=== PATIENT | male | born 1950 | race Caucasian/White ===

== ENCOUNTER 2017-02-09 10:38 | Emergency (ER) | payer MEDICARE, BC ==
[2017-02-09 11:16] VITALS: BP 127/78
--- NOTE | 2017-02-09 12:18 | EDM.PDOC ---
ED HPI GENERAL MEDICAL PROBLEM - General Chief Complaint: General Stated Complaint: FACE BECAME NUMB ON TUESDAY AND STILL SOME WEAKNESS Time Seen by Provider: 02/09/17 11:46 Source of Information: Reports: Patient, Family, RN notes reviewed History Limitations: Reports: No limitations - History of Present Illness INITIAL COMMENTS - FREE TEXT/NARRATIVE: 66-year-old gentleman presents emergency department today with complaint of left -sided facial numbness, states his symptoms initially started on Tuesday he did have a headache at that time he describes as sharp and electric headache is now resolved he is very specific about the facial numbness is on half of his face left side above the lip and slightly below the nose does not incorporate the ear he says at certain points when he strokes his johnson it can be very painful. No rash he has never had shingles before, does not complain of any focal neural deficits Left Hip Pain Score (Numeric/FACES): 8 - Related Data Allergies Allergy/AdvReac Type Severity Reaction Status Date / Time Sulfa (Sulfonamide AdvReac Hallucinati Verified 10/25/16 07:21 Antibiotics) ons Home Meds: Home Meds Ca Carbonate/Vitamin D3/Vit K [Calcium + D Soft Chewable Tab] 1 tab PO BID 12/03 [History] Cyanocobalamin (Vitamin B-12) [B-12] 2,500 mcg PO DAILY 12/03/14 [History] Gabapentin [Neurontin] 1,200 mg PO TID 12/03/14 [History] Levothyroxine 125 mcg PO ACBRK 12/03/14 [History] Multivitamin with Minerals [Multivitamins with Minerals] 1 each PO BID 12/03/14 [History] Sertraline [Zoloft] 100 mg PO DAILY 12/03/14 [History] Vitamin B Complex [B Complex] 1 tab PO DAILY 12/03/14 [History] DULoxetine HCl [Cymbalta] 90 mg PO DAILY 02/12/16 [History] Doxepin [SINEquan] 10 mg PO BEDTIME 02/12/16 [History] Finasteride [Proscar] 5 mg PO BEDTIME 02/12/16 [History] Omeprazole [Omeprazole] 40 mg PO DAILY 02/12/16 [History] Polyethylene Glycol 3350 [Miralax] 238 gm PO DAILY PRN 02/12/16 [History] traMADol [Ultram] 50 - 100 mg PO Q6H PRN 02/12/16 [History] Cyclobenzaprine [Flexeril] 10 mg PO TID PRN 10/21/16 [History] L.acidoph,Paracasei, B.lactis [Probiotic] 1 cap PO DAILY 10/21/16 [History] traZODone 50 - 100 mg PO BEDTIME 10/21/16 [History] Past Medical History HEENT History: Reports: Impaired vision, Other (see below) Other HEENT History: wears glasses, infection in right submandibular gland Gastrointestinal History: Reports: Bowel obstruction, Cholelithiasis, Colon polyp, Gastritis, GERD Genitourinary History: Reports: Prostate disorder Musculoskeletal History: Reports: Arthritis, Back pain, chronic, Fracture, Neck pain, chronic, Other (see below) Other Musculoskeletal History: polyneuropathy Neurological History: Reports: Concussion, CVA Endocrine/Metabolic History: Reports: Hypothyroidism Hematologic History: Reports: B12 deficiency - Infectious Disease History Infectious Disease History: Reports: Chicken pox, Measles Other Infectious Disease History: MRSA 2011 - Past Surgical History Head Surgeries/Procedures: Reports: None HEENT Surgical History: Reports: Oral surgery Cardiovascular Surgical History: Reports: Other (see below) Other Cardiovascular Surgeries/Procedures: angiogram 2009 GI Surgical History: Reports: Bariatric procedure, Cholecystectomy, Colonoscopy , EGD, Hernia, abdominal, Polypectomy, Small bowel, Other (see below) Other GI Surgeries/Procedures: panniculectomy bowel resection Endocrine Surgical History: Reports: None Neurological Surgical History: Reports: Spinal fusion, Other (see below) Other Neurological Surgeries/Procedures: radiofrequency ablation neck , L4- S1 Musculoskeletal Surgical History: Reports: Carpal tunnel, Other (see below) Other Musculoskeletal Surgeries/Procedures:: rotator cuff , CTR, elbow surgery pin left big toe Dermatological Surgical History: Reports: None Social & Family History - Family History HEENT: Reports: None Cardiac: Reports: Heart failure, Hypertension Respiratory: Reports: Asthma, Other (see below) Other Respiratory Family Hisory: emphysema Oncologic: Reports: Breast, Lung, Lymphoma, Prostate, Other (see below) Other Oncologic Family History: stomach - Tobacco Use Smoking Status *Q: Current Every Day Smoker Years of Tobacco use: 50 Packs/Tins Daily: 1 Used Tobacco, but Quit: No Second Hand Smoke Exposure: Yes - Caffeine Use Caffeine Use: Reports: Coffee Other Caffeine Use: 2 pots a days - Alcohol Use Days Per Week of Alcohol Use: 0 - Recreational Drug Use Recreational Drug Use: No ED ROS GENERAL - Review of Systems Review Of Systems: See Below Constitutional: Reports: no symptoms HEENT: Reports: No symptoms Respiratory: Reports: No Symptoms Cardiovascular: Reports: No symptoms GI/Abdominal: Reports: No symptoms : Reports: no symptoms Musculoskeletal: Reports: no symptoms Neurological: Reports: Headache (Now resolve), Numbness, Tingling ED EXAM, GENERAL - Physical Exam Exam: See Below Free Text/Narrative:: Examination of the face I don't appreciate any rash very specific about the numbness tingling area is on the left side of the face top half of the lip is included bottom half is not inferior aspect of the nose up to the corner of the left eye the ear is spared and the remainder of the integument system is included consistent with a V2 dermatome Exam Limited By: No limitations General Appearance: alert, WD/WN, no apparent distress Eye Exam: bilateral eye: EOMI, normal fundi, normal inspection Nose: normal inspection, normal mucosa, no blood Throat/Mouth: Normal inspection, Normal lips, Normal teeth, Normal gums, Normal oropharynx, Normal voice, No airway compromise Head: atraumatic, normocephalic Neck: normal inspection, supple, non-tender, full range of motion Respiratory/Chest: no respiratory distress, lungs clear, normal breath sounds, no accessory muscle use Cardiovascular: regular rate, rhythm, no murmur Neurological: alert, oriented, CN II-XII intact, normal cognition, normal gait, no motor/sensory deficits Course - Vital Signs Last Recorded V/S: Last Vital Signs Temp 98.6 F 02/09/17 11:04 Pulse 55 L 02/09/17 11:04 Resp 12 02/09/17 11:04 BP 127/78 02/09/17 11:04 Pulse Ox 98 02/09/17 11:04 Departure - Departure Time of Disposition: 12:18 Disposition: Home, Self-Care 01 Condition: good Clinical Impression: Facial numbness Forms: ED Department Discharge Additional Instructions: Continue to watchful waiting, any sign of a rash develops please start the Valtrex, any vision symptoms that developed or become worse please follow up with her eye care provider, recommend recheck by your primary care provider in the next 2-3 days, call or return to the ED with worsening of symptoms - Assessment/Plan Plan: Assessment Acuity = acute Site and laterality = suspicious for early shingles given the specificity of the V2 involvement Etiology = probable varicella-zoster Manifestations = numbness, tingling, pain V2 distribution left side Location of injury = home Lab values = none Plan Prescription written for Valtrex 1 g by mouth 3 times a day x7 days and asked him to do close followup with his eye care provider if any symptoms develop, he is going to wait to start the prescription until he gets excited or rash, otherwise followup with primary care in 2-3 days for reevaluation Patient was in agreement with the plan all questions were answered, they were instructed to return to the emergency department or call for worsening symptoms. This note was dictated using the grafter voice recognition software please call with any questions.
== END 2017-02-09 12:39 | disposition home or self-care (01) ==
LOC: JP.ED 10:38
DX: R20.0 Anesthesia of skin (principal); K21.9 Gastro-esophageal reflux disease without esophagitis; E03.9 Hypothyroidism, unspecified; F17.210 Nicotine dependence, cigarettes, uncomplicated; Z90.49 Acquired absence of other specified parts of digestive tract; Z98.84 Bariatric surgery status; Z98.890 Other specified postprocedural states; Z79.899 Other long term (current) drug therapy; Z88.2 Allergy status to sulfonamides
CPT/HCPCS: 99283; 99284

== ENCOUNTER 2018-04-07 15:27 | Emergency (ER) | payer MEDICARE, BC ==
[2018-04-07 15:37] VITALS: BP 122/68
[2018-04-07] MEDS ORDERED: HYDROmorphone 1 MG/ML Syringe IM ONE (16:06)
--- NOTE | 2018-04-07 16:12 | EDM.PDOC ---
ED HPI GENERAL MEDICAL PROBLEM - General Chief Complaint: Lower Extremity Injury/Pain Stated Complaint: BOBCAT ACCIDENT Time Seen by Provider: 04/07/18 15:45 Source of Information: Reports: Patient, EMS, Family History Limitations: Reports: No Limitations - History of Present Illness INITIAL COMMENTS - FREE TEXT/NARRATIVE: Amish presents today with complaints of right knee and right ankle pain after slipping and falling off his bobcat while hauling wood today at about 1400. He reports he is not able to bear weight on his right foot. Right Knee Pain Score (Numeric/FACES): 8 - Related Data Allergies Allergy/AdvReac Type Severity Reaction Status Date / Time Sulfa (Sulfonamide AdvReac Hallucinati Verified 04/07/18 15:36 Antibiotics) ons Home Meds: Home Meds Ca Carbonate/Vitamin D3/Vit K [Calcium + D Soft Chewable Tab] 1 tab PO BID 12/03 [History] Cyanocobalamin (Vitamin B-12) [B-12] 2,500 mcg PO DAILY 12/03/14 [History] Gabapentin [Neurontin] 1,200 mg PO TID 12/03/14 [History] Levothyroxine 125 mcg PO ACBRK 12/03/14 [History] Multivitamin with Minerals [Multivitamins with Minerals] 1 each PO BID 12/03/14 [History] Sertraline [Zoloft] 100 mg PO DAILY 12/03/14 [History] Vitamin B Complex [B Complex] 1 tab PO DAILY 12/03/14 [History] DULoxetine HCl [Cymbalta] 90 mg PO DAILY 02/12/16 [History] Doxepin [SINEquan] 10 mg PO BEDTIME 02/12/16 [History] Finasteride [Proscar] 5 mg PO BEDTIME 02/12/16 [History] Omeprazole 40 mg PO DAILY 02/12/16 [History] Polyethylene Glycol 3350 [Miralax] 238 gm PO DAILY PRN 02/12/16 [History] traMADol [Ultram] 50 - 100 mg PO Q6H PRN 02/12/16 [History] Cyclobenzaprine [Flexeril] 10 mg PO TID PRN 10/21/16 [History] L.acidoph,Paracasei, B.lactis [Probiotic] 1 cap PO DAILY 10/21/16 [History] traZODone 50 - 100 mg PO BEDTIME 10/21/16 [History] Past Medical History HEENT History: Reports: Impaired Vision, Other (See Below) Other HEENT History: wears glasses, infection in right submandibular gland Cardiovascular History: Reports: None Respiratory History: Reports: Sleep Apnea Gastrointestinal History: Reports: Bowel Obstruction, Cholelithiasis, Colon Polyp, Gastritis, GERD Genitourinary History: Reports: Prostate Disorder Musculoskeletal History: Reports: Arthritis, Back Pain, Chronic, Fracture, Neck Pain, Chronic Other Musculoskeletal History: polyneuropathy Neurological History: Reports: CVA Endocrine/Metabolic History: Reports: Hypothyroidism Hematologic History: Reports: B12 Deficiency - Infectious Disease History Infectious Disease History: Reports: Chicken Pox, Measles Other Infectious Disease History: MRSA 2011 - Past Surgical History HEENT Surgical History: Reports: Oral Surgery GI Surgical History: Reports: Bariatric Procedure, Cholecystectomy, Colon, Colonoscopy, EGD, Hernia, Abdominal, Polypectomy, Small Bowel, Other (See Below) Other GI Surgeries/Procedures: colon resection Male Surgical History: Reports: TURP-Transurethral Resection of Prostate Neurological Surgical History: Reports: Spinal Fusion Musculoskeletal Surgical History: Reports: Carpal Tunnel Social & Family History - Family History HEENT: Reports: None Cardiac: Reports: Heart Failure, Hypertension Respiratory: Reports: Asthma, Other (See Below) Other Respiratory Family Hisory: emphysema Oncologic: Reports: Breast, Lung, Lymphoma, Prostate, Other (See Below) Other Oncologic Family History: stomach - Tobacco Use Smoking Status *Q: Heavy Tobacco Smoker Years of Tobacco use: 50 Packs/Tins Daily: 1 - Caffeine Use Caffeine Use: Reports: Coffee Other Caffeine Use: 2 pots a days - Recreational Drug Use Recreational Drug Use: No Review of Systems - Review of Systems Review Of Systems: See Below Constitutional: Reports: No Symptoms Eyes: Reports: No Symptoms Ears: Reports: No Symptoms Nose: Reports: No Symptoms Mouth/Throat: Reports: No Symptoms Respiratory: Reports: No Symptoms Cardiovascular: Reports: No Symptoms GI/Abdominal: Reports: No Symptoms Genitourinary: Reports: No Symptoms Musculoskeletal: Reports: Foot Pain, Joint Pain, Other (Right knee and ankle pain) Skin: Reports: No Symptoms Neurological: Reports: Other (He suffers from chronic polyneuropathy, numbness to feet. ) Psychiatric: Reports: No Symptoms ED EXAM, GENERAL - Physical Exam Exam: See Below Free Text/Narrative:: Mr. Garvey presents today with complaints of pain to right knee and ankle after twisting injury when he slipped and fell on his bobcat at 1400 today. He denies LOC, head injury or other concerns. He reports use of oxycontin works good for his pain. General Appearance: Alert, WD/WN, Moderate Distress Eye Exam: Bilateral Eye: EOMI, Normal Inspection, PERRL Ears: Normal External Exam, Normal Canal, Hearing Grossly Normal, Normal TMs Ear Exam: Bilateral Ear: TM normal Nose: Normal Inspection, Normal Mucosa, No Blood Throat/Mouth: Normal Inspection, Normal Lips, Normal Gums, Normal Oropharynx, Normal Voice, No Airway Compromise Head: Atraumatic, Normocephalic Neck: Normal Inspection, Supple, Non-Tender, Full Range of Motion. No: Lymphadenopathy (R), Lymphadenopathy (L) Respiratory/Chest: No Respiratory Distress, Lungs Clear, Normal Breath Sounds, No Accessory Muscle Use, Chest Non-Tender Cardiovascular: Normal Peripheral Pulses, Regular Rate, Rhythm, No Edema, No Gallop, No Murmur, No Rub Peripheral Pulses: 2+: Radial (L), Radial (R), Dorsalis Pedis (L), Dorsalis Pedis (R) GI/Abdominal: Normal Bowel Sounds, Soft, Non-Tender, No Organomegaly, No Distention, No Mass, Pelvis Stable Back Exam: Normal Inspection, Full Range of Motion. No: CVA Tenderness (R), CVA Tenderness (L) Extremities: No Pedal Edema, Normal Capillary Refill, Leg Pain, Limited Range of Motion, Other (Pain to medial right knee and medial right ankle. Increase in pain with movement, flexion and extension. ). No: Increased Warmth, Mottled , Redness Neurological: Alert, Oriented, CN II-XII Intact, Normal Cognition, Normal Reflexes, No Motor/Sensory Deficits Psychiatric: Normal Affect, Normal Mood Skin Exam: Warm, Dry, Intact, Normal Color, No Rash. No: Ecchymosis, Erythema, Increased Warmth Lymphatic: No Adenopathy Course - Vital Signs Last Recorded V/S: Last Vital Signs Temp 36.7 C 04/07/18 15:33 Pulse 58 L 04/07/18 15:33 Resp 18 04/07/18 15:33 BP 122/68 04/07/18 15:33 Pulse Ox 96 04/07/18 15:33 - Orders/Labs/Meds Orders: Active Orders 24 hr Category Date Time Status Ankle Min 3V Rt [CR] Stat Exams 04/07/18 16:06 Taken Knee 3V Rt [CR] Stat Exams 04/07/18 16:06 Taken Meds: Medications Discontinued Medications Generic Name Dose Route Start Last Admin Trade Name Lali PRN Reason Stop Dose Admin Hydrocodone Bitart/Acetaminophen 1 tab 04/07/18 17:19 [place] 325-5 Mg PO 04/07/18 17:20 ONETIME ONE Hydromorphone HCl 1 mg 04/07/18 16:06 04/07/18 16:22 Dilaudid IM 04/07/18 16:07 1 mg ONETIME ONE Administration - Radiology Interpretation Free Text/Narrative:: X-rays of right knee and right ankle reviewed. No acute findings noted. X-rays reviewed with Dr. Al, she is in agreement. Radiologist read pending. Departure - Departure Time of Disposition: 17:29 Disposition: Home, Self-Care 01 Condition: Good Clinical Impression: Right ankle sprain, Right knee pain - Discharge Information Instructions: Ankle Sprain, [id number], Knee Sprain, Adult, [id number] Referrals: Iggy Chicas INTERNATIONAL LOGISTICS COORDINATOR [Primary Care Provider] - Forms: ED Department Discharge Additional Instructions: You have been evaluated and treated for right knee sprain and right ankle sprain in the emergency room Secondary to fall from Bobcat. Rest, ice, elevation and compression will help the best. Keep the right leg elevated to minimize swelling and pain. Use michelle wraps for compression to help with swelling and pain. Take ibuprofen 600mg to 800mg by mouth three times a day as needed for pain. You can also take acetaminophen 1000mg by mouth three times a day for pain. Wear Cam-walker boot for ankle sprain. Hard copy script provided for short right knee stabilizer - neoprene. Fill this at nearest pharmacy for support. Use a walker to assist with ambulation until pain decreases. Follow up with Dr. Carla Young ORTHO next week for further management. Return for worsening, issues or concerns. - My Orders Last 24 Hours: My Active Orders 04/07/18 16:06 Ankle Min 3V Rt [CR] Stat Knee 3V Rt [CR] Stat - Assessment/Plan Last 24 Hours: My Active Orders 05/25/18 16:06 Ankle Min 3V Rt [CR] Stat Knee 3V Rt [CR] Stat Assessment:: Right knee sprain Right ankle sprain Plan: Patient evaluated and treated for right knee sprain and right ankle sprain in the emergency room Secondary to fall from Bobcat. Rest, ice, elevation and compression will help the best. Keep the right leg elevated to minimize swelling and pain. Use michelle wraps for compression to help with swelling and pain. Take ibuprofen 600mg to 800mg by mouth three times a day as needed for pain. He can also take acetaminophen 1000mg by mouth three times a day for pain. Wear Cam-walker boot for ankle sprain. Hard copy script provided for short right knee stabilizer - neoprene. Fill this at nearest pharmacy for support. Use a walker to assist with ambulation until pain decreases. Follow up with Dr. Carla Young ORTHO next week for further management. Return for worsening, issues or concerns.
[2018-04-07] MEDS ORDERED: Acetaminophen/HYDROcodone 325-5 MG Tab PO ONE (17:19)
--- NOTE | 2018-04-11 08:53 | CR ---
Findings: Degenerative changes at the ankle. Osteophyte or loose body at the talar neck dorsal aspect . Calcification of the plantar fascia and Achilles tendon. No fracture.
--- NOTE | 2018-04-11 08:53 | CR ---
Large effusion or synovitis. Chondrocalcinosis. Arthritic change greatest at the patellofemoral sonam rtment. No fracture.
== END 2018-04-07 18:22 | disposition home or self-care (01) ==
LOC: JP.ED 15:27
DX: S93.401A Sprain of unspecified ligament of right ankle, initial encounter (principal); S83.91XA Sprain of unspecified site of right knee, initial encounter; E03.9 Hypothyroidism, unspecified; F17.210 Nicotine dependence, cigarettes, uncomplicated; Z88.2 Allergy status to sulfonamides; Z79.899 Other long term (current) drug therapy; W01.0XXA Fall on same level from slipping, tripping and stumbling without subsequent striking against object, initial encounter
CPT/HCPCS: 73562; 73610; 96372; 99284; A9270; J1170

== ENCOUNTER 2018-05-08 08:01 | Day surgery (SDC) | payer BC, MEDICARE ==
[2018-05-08] MEDS ORDERED: LACTATED RINGERS IV SCH ×3 (08:30)
[2018-05-08] MEDS ORDERED: VITAMIN K IV SCH ×3 (08:30)
[2018-05-08] MEDS ORDERED: THIAMINE IV SCH ×3 (08:30)
[2018-05-08] MEDS ORDERED: MVI IV SCH ×3 (08:30)
[2018-05-08] MEDS ORDERED: fentaNYL 100 MCG/2 ML SDV ONE (08:45)
[2018-05-08] MEDS ORDERED: Propofol 200 MG/20 ML SDV ONE (08:45)
[2018-05-08] MEDS ORDERED: Midazolam 1 MG/ML 2 ML SDV ONE (08:45)
[2018-05-08] MEDS ORDERED: Glycopyrrolate 0.2 MG/ML 2 ML SDV IVPUSH ONE (09:00)
[2018-05-08] MEDS ORDERED: Cyanocobalamin (Vitamin B12) 1,000 MCG/ML SDV IM ONE (09:30)
[2018-05-08] MEDS ORDERED: MVI, Adult with Vitamin K 10 ML, Thiamine 200 MG, Chromium/Copper/Mang/Selen/Zn 1 ML in... IV ONE ×4 (10:30)
[2018-05-08 11:56] VITALS: BP 135/76
--- NOTE | 2018-05-09 09:26 | OR ---
DATE OF PROCEDURE: 05/08/2018 PREOPERATIVE DIAGNOSES: Epigastric pain and heartburn. POSTOPERATIVE DIAGNOSES: Epigastric pain and heartburn, status post Brittani-en-Y gastric bypass with; 1. Possible thrush over tongue. 2. Otherwise normal examination. OPERATIVE PROCEDURE: Upper GI endoscopy. ANESTHESIA: IV sedation. INDICATION FOR PROCEDURE: The patient presents with some complaints of epigastric discomfort and heartburn, along with a dry and somewhat thickened feeling over this tongue. The patient has been on omeprazole 40 mg daily. He had been on Carafate, but found that not tolerable. The plan is to proceed with upper GI endoscopy with biopsies as indicated. Potential risks including bleeding and perforation were discussed, and the patient wishes to proceed. DETAILS OF PROCEDURE: The patient was taken to the operating room and placed in a left lateral decubitus position. IV sedation was administered, after which the upper GI endoscope was passed orally through the length of the esophagus and into the gastric pouch and from there through the gastrojejunostomy roughly 30 cm further into the Brittani limb. The patient was noted to have a thickened and somewhat widened area over the surface of the tongue, otherwise, subsequent examination below that was entirely normal. There were no abnormalities of the hypopharynx, larynx, or upper esophageal sphincter. The esophageal body and EG junction were entirely free of any gross inflammation. The gastric pouch likewise was not inflamed, and there was no stricturing or problems noted at the gastrojejunostomy. The mucosa throughout this entire exam was entirely normal below the tongue. Passing the scope quite a bit into the Brittani limb, there was no bile or other signs of partial small bowel obstruction distally. The scope was then withdrawn, and the procedure then concluded. The patient was taken to the recovery room in a satisfactory condition. The patient will be given a course of Mycostatin swish and swallow 5 mL q.i.d. for 5 days for possible thrush. Otherwise, continue the present medications. He will be following up with Olga Brown in one week. If he continues to have symptoms of heartburn or dysphasia, a course of Levsin may be warranted at that point. The patient was also complaining of some nebulous symptoms suggestive of TIAs. This apparently has received some workup in the recent past, and Olga Brown will be looking into that in terms of what needs to be done in terms of further evaluation, workup and referrals. Artur Young MD Job #: [id number]
== END 2018-05-08 12:26 | disposition home or self-care (01) ==
LOC: JP.SDS 08:01
PROVIDERS: ATTEND Surgery
PROC: 0DJ08ZZ Inspection of Upper Intestinal Tract, Via Natural or Artificial Opening Endoscopic (ICD-10-PCS; principal; 2018-05-08)
DX: R10.13 Epigastric pain (principal); R12 Heartburn
CPT/HCPCS: 43235; J2250; J2704; J3010; J3411; J3420; J7120; J3490

== ENCOUNTER 2019-01-19 07:44 | Day surgery (SDC) | payer MEDICARE ==
[2019-01-19] MEDS ORDERED: Dextrose 5%-Lactated Ringers 1,000 ML IV SCH (08:45)
[2019-01-19] MEDS ORDERED: Propofol 200 MG/20 ML SDV ONE (09:33)
[2019-01-19] MEDS ORDERED: Midazolam 1 MG/ML 2 ML SDV ONE (09:33)
[2019-01-19] MEDS ORDERED: fentaNYL 100 MCG/2 ML SDV ONE (09:33)
[2019-01-19] MEDS ORDERED: MVI, Adult with Vitamin K 10 ML, Chromium/Copper/Mang/Selen/Zn 1 ML in Lactated Ringers... IV ONE ×3 (10:00)
[2019-01-19 11:47] VITALS: BP 161/72
--- NOTE | 2019-01-26 09:03 | OR ---
DATE OF PROCEDURE: 01/19/2019 SURGEON: Artur Young MD PREOPERATIVE DIAGNOSIS: History of pancreatic carcinoma with ongoing nausea and weight loss. POSTOPERATIVE DIAGNOSIS: Normal endoscopic examination, status post Brittani-en-Y gastric bypass. OPERATIVE PROCEDURE: Upper GI endoscopy with biopsy of gastric pouch for CLOtest. ANESTHESIA: IV sedation. 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 He is beginning neoadjuvant treatment next week. He has had problems with nausea and weight loss, and he is undergoing upper GI endoscopy for evaluation of his upper GI status. He is status post previous Brittani-en-Y gastric bypass. Potential risks including bleeding and perforation were discussed, and the patient wishes to proceed. DETAILS OF PROCEDURE: The patient was taken to the operating room and placed in a left lateral decubitus position. IV sedation was administered, after which the upper GI endoscope was passed orally through the length of the esophagus, through the esophagogastric junction into the gastric pouch, and from there through the gastrojejunostomy roughly 20 cm into the Brittani limb. Overall, there were no abnormalities at all during the examination. There were no areas of mucosal inflammation, no stricturing, and no reflux of bile or signs of more distal bowel obstruction. Biopsies were then obtained from the gastric pouch and sent for CLOtest for H. pylori. Minimal bleeding from the biopsy sites was seen, and the procedure was then concluded. At this point, the patient's nausea and anorexia are likely tumor related factors, as well as his jaundiced state. The plan will be to give the patient Zofran 4 mg ODT t.i.d. to be taken around 30 minutes before meals. We will also give an additional liter of lactate Ringer's with MVI trace elements prior to discharge today. He will be following with Medical-Oncology next week. The patient is quite jaundiced at this point, and the hope is that the neoadjuvant treatment will treat the tumor enough that he opens up his common bile duct to some extent. If this fails to occur over the next relatively short period, one might consider placing an endoscopic stent across the common bile duct to alleviate the jaundice. Artur Young MD /[id number]
== END 2019-01-19 12:27 | disposition home or self-care (01) ==
LOC: JP.SDS 07:44
PROVIDERS: ATTEND Surgery
DX: R11.0 Nausea (principal); R63.4 Abnormal weight loss; R63.0 Anorexia; C25.0 Malignant neoplasm of head of pancreas; E03.9 Hypothyroidism, unspecified; K21.9 Gastro-esophageal reflux disease without esophagitis; F17.200 Nicotine dependence, unspecified, uncomplicated; F32.9 Major depressive disorder, single episode, unspecified; Z98.84 Bariatric surgery status; Z68.29 Body mass index [BMI] 29.0-29.9, adult; Z86.73 Personal history of transient ischemic attack (TIA), and cerebral infarction without residual deficits
CPT/HCPCS: 43239; 87081; C1751; J1642; J2250; J2704; J3010; J7042; J7120

== ENCOUNTER 2019-02-14 22:22 | Inpatient (IN) | payer MEDICARE ==
[2019-02-14] MEDS ORDERED: Ondansetron 4 MG Tab.DIS PO ONE (22:27)
[2019-02-14] MEDS ORDERED: Lactated Ringers 1,000 ML IV ONE (22:49)
[2019-02-14] MEDS ORDERED: Acetaminophen 500 MG Tab PO ONE (22:57)
[2019-02-14] MEDS ORDERED: oxyCODONE 5 MG Tab PO ONE (22:57)
--- NOTE | 2019-02-14 23:04 | EDM.PDOC ---
ED HPI GENERAL MEDICAL PROBLEM - General Chief Complaint: Fever Stated Complaint: FEVER, NAUSEA Time Seen by Provider: 02/14/19 22:50 Source of Information: Reports: Patient, Old Records History Limitations: Reports: Other (incomplete records) - History of Present Illness INITIAL COMMENTS - FREE TEXT/NARRATIVE: 68 yo male with pancreatic CA presents with a fever since midday yesterday. Was in to the clinic yesterday morning for a different issue and has not reported his current illness to his primary. Called the provider group who tx's his CA and was told to come right in to the ER and to not take any of his oral meds before arrival, he did not ask why he shouldn't take these meds. He denies any other sx's other than a mild sore throat currently. Did have some mild nausea earlier. Has a Powerport since 01/11/19 placed at [place]. Is followed for his CA by [facility]. Onset: Gradual Onset Date: 02/13/19 Duration: Day(s): (1.5), Constant Location: Reports: Generalized Quality: Reports: Other (no pain) Severity: Mild Improves with: Reports: None Worsens with: Reports: Other (? time) Context: Reports: Other (see HPI) Associated Symptoms: Reports: Fever/Chills, Nausea/Vomiting (no vomiting). 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) (none) - Related Data Allergies Allergy/AdvReac Type Severity Reaction Status Date / Time Sulfa (Sulfonamide AdvReac Hallucinati Verified 02/14/19 23:00 Antibiotics) ons environmental Allergy Hives Uncoded 02/14/19 23:00 Home Meds: Home Meds Ca Carbonate/Vitamin D3/Vit K [Calcium + D Soft Chewable Tab] 1 tab PO BID 12/03 [History] Cyanocobalamin (Vitamin B-12) [B-12] 2,500 mcg PO DAILY 12/03/14 [History] Gabapentin [Neurontin] 600 mg PO BID 12/03/14 [History] Levothyroxine 125 mcg PO ACBRK 12/03/14 [History] Multivitamin with Minerals [Multivitamins with Minerals] 1 each PO BID 12/03/14 [History] Sertraline [Zoloft] 100 mg PO DAILY 12/03/14 [History] Vitamin B Complex [B Complex] 1 tab PO DAILY 12/03/14 [History] DULoxetine HCl [Cymbalta] 60 mg PO BID 02/12/16 [History] Omeprazole 40 mg PO BID 02/12/16 [History] Cyclobenzaprine [Flexeril] 10 mg PO TID PRN 10/21/16 [History] Acetaminophen 650 mg PO Q4H PRN 05/04/18 [History] Calcium Carbonate [Calcium] 500 mg PO DAILY PRN 05/04/18 [History] EPINEPHrine [Epipen 2-Viral] 0.3 ml IM ASDIRECTED 05/04/18 [History] rOPINIRole [Requip] 1 mg PO BEDTIME 05/04/18 [History] Polyethylene Glycol 3350 17 g PO QPM 01/17/19 [History] Prochlorperazine Maleate [Compazine] 10 mg PO Q6HR PRN 01/17/19 [History] Venlafaxine [Effexor] 75 mg PO DAILY 01/17/19 [History] oxyCODONE 10 mg PO Q4HR PRN 01/17/19 [History] Past Medical History HEENT History: Reports: Impaired Vision, Other (See Below) Other HEENT History: wears glasses, infection in right submandibular gland Cardiovascular History: Reports: High Cholesterol Respiratory History: Reports: Sleep Apnea Gastrointestinal History: Reports: Bowel Obstruction, Cholelithiasis, Colon Polyp, Gastritis, GERD, Jaundice Genitourinary History: Reports: Prostate Disorder Musculoskeletal History: Reports: Arthritis, Back Pain, Chronic, Fracture, Neck Pain, Chronic, Other (See Below) Other Musculoskeletal History: polyneuropathy. R knee/ankle sprain Neurological History: Reports: CVA Psychiatric History: Reports: Anxiety Endocrine/Metabolic History: Reports: Hypothyroidism, Obesity/BMI 30+ Hematologic History: Reports: B12 Deficiency Oncologic (Cancer) History: Reports: Pancreatic - Infectious Disease History Infectious Disease History: Reports: Chicken Pox, MRSA Other Infectious Disease History: MRSA 2011 - Past Surgical History HEENT Surgical History: Reports: Oral Surgery Respiratory Surgical History: Reports: None GI Surgical History: Reports: Bariatric Procedure, Colonoscopy, EGD, Hernia Repair/Other Other GI Surgeries/Procedures: colon resection; Panniculectomy Male Surgical History: Reports: TURP-Transurethral Resection of Prostate Endocrine Surgical History: Reports: Other (See Below) Other Endocrine Surgeries/Procedures: Salvitory gland Neurological Surgical History: Reports: Spinal Fusion Musculoskeletal Surgical History: Reports: Carpal Tunnel, Shoulder Surgery, Other (See Below) Other Musculoskeletal Surgeries/Procedures:: left rotator cuff repair Social & Family History - Family History Family Medical History: Noncontributory HEENT: Reports: None Cardiac: Reports: Heart Failure, Hypertension Respiratory: Reports: Asthma, Other (See Below) Other Respiratory Family Hisory: emphysema Oncologic: Reports: Breast, Lung, Lymphoma, Prostate, Other (See Below) Other Oncologic Family History: stomach - Caffeine Use Caffeine Use: Reports: Coffee Other Caffeine Use: 2 pots a days ED ROS GENERAL - Review of Systems Review Of Systems: See Below Constitutional: Reports: Fever, Chills, Malaise HEENT: Reports: Throat Pain (minimal). Denies: Ear Pain, Eye Discharge, Rhinitis, Throat Swelling Respiratory: Reports: No Symptoms Cardiovascular: Reports: No Symptoms GI/Abdominal: Reports: Abdominal Pain (chronic, not worse), Nausea (better now) . Denies: Black Stool, Bloody Stool, Diarrhea, Vomiting : Reports: No Symptoms Musculoskeletal: Reports: No Symptoms Skin: Reports: No Symptoms Neurological: Reports: No Symptoms ED EXAM, SEPSIS - Physical Exam Exam: See Below Exam Limited By: No Limitations General Appearance: Alert, WD/WN, No Apparent Distress Eye Exam: Bilateral Eye: Normal Inspection Ears: Normal External Exam, Normal Canal, Hearing Grossly Normal, Normal TMs Nose: Normal Inspection, No Blood Throat/Mouth: Normal Inspection, Normal Lips, Normal Oropharynx, Normal Voice, No Airway Compromise Head: Atraumatic, Normocephalic Neck: Normal Inspection, Non-Tender Respiratory/Chest: No Respiratory Distress, Lungs Clear, Normal Breath Sounds, No Accessory Muscle Use Cardiovascular: Regular Rate, Rhythm, No Edema GI/Abdominal Exam: Normal Bowel Sounds, Soft, Non-Tender, No Distention. No: Distended, Guarding, Rigid, Rebound, Tender Back: Normal Inspection. No: CVA Tenderness (R), CVA Tenderness (L) Extremities: Normal Inspection, Normal Range of Motion, Non-Tender, No Pedal Edema Neurological: Alert, Oriented, CN II-XII Intact, Normal Cognition, No Motor/ Sensory Deficits Psychiatric: Normal Affect, Normal Mood Skin: Warm, Dry, Intact, Normal Color, No Rash Lymphatic: Bilateral: No Adenopathy Course - Vital Signs Text/Narrative:: Spoke with [facility] oncology @ 1244h, Dr. Alvaro Grace aware @ 12:55 am Last Recorded V/S: Last Vital Signs Temp 37.4 C 02/15/19 00:37 Pulse 95 02/15/19 00:37 Resp 14 02/15/19 00:37 BP 100/52 L 02/15/19 00:37 Pulse Ox 95 02/15/19 00:37 - Orders/Labs/Meds Orders: Active Orders 24 hr Category Date Time Status CULTURE BLOOD [BC] Stat Lab 02/14/19 23:55 Received CULTURE BLOOD [BC] Stat Lab 02/15/19 00:44 Ordered Vancomycin 1.75 gm Med 02/15/19 01:02 Ordered Sodium Chloride 0.9% [Normal Saline] 250 ml IV NOW Labs: Laboratory Tests 02/14/19 02/14/19 02/15/19 Range/Units 23:10 23:10 00:08 WBC 19.5 H (4.5-11.0) K/uL RBC 3.24 L (4.30-5.90) M/uL Hgb 10.0 L D (12.0-15.0) g/dL Hct 30.9 L (40.0-54.0) % MCV 95 (80-98) fL MCH 31 (27-31) pg MCHC 32 (32-36) % Plt Count 152 (150-400) K/uL C-Reactive Protein 6.59 H (0.0-0.3) mg/dL Urine Color Yellow Urine Appearance Clear Urine pH 8.0 (4.5-8.0) Ur Specific [place] 1.010 (1.008-1.030) Urine Protein Negative (NEGATIVE) mg/dL Urine Glucose (UA) Normal (NEGATIVE) mg/dL Urine Ketones Negative (NEGATIVE) mg/dL Urine Occult Blood Negative (NEGATIVE) Urine Nitrite Negative (NEGAITVE) Urine Bilirubin Negative (NEGATIVE) Urine Urobilinogen Normal (NORMAL) mg/dL Ur Leukocyte Esterase Negative (NEGATIVE) Urine RBC 0-5 (0-5) Urine WBC 0-5 (0-5) Ur Epithelial Cells Rare Amorphous Sediment Not seen Urine Bacteria Few Urine Mucus Not seen Meds: Medications Discontinued Medications Generic Name Dose Route Start Last Admin Trade Name Freq PRN Reason Stop Dose Admin Acetaminophen 1,000 mg 02/14/19 22:57 02/14/19 23:20 Tylenol Extra Strength PO 02/14/19 22:58 1,000 mg ONETIME ONE Administration Lactated Ringer's 1,000 mls @ 1,000 mls/hr 02/14/19 22:49 Ringers, Lactated IV 02/14/19 23:48 BOLUS ONE Ondansetron HCl 4 mg 02/14/19 22:27 Zofran Odt PO 02/14/19 22:28 ONETIME ONE Oxycodone HCl 10 mg 02/14/19 22:57 02/14/19 23:21 Oxycodone PO 02/14/19 22:58 10 mg ONETIME ONE Administration - Radiology Interpretation Free Text/Narrative:: CXR-negative Departure - Departure Time of Disposition: 01:10 Disposition: Admitted As Inpatient 67 Condition: Fair Clinical Impression: Bacteremia Central line-associated bloodstream infection Qualifiers: Encounter type: initial encounter Qualified Code(s): T80.211A - Bloodstream infection due to central venous catheter, initial encounter - Discharge Information *PRESCRIPTION DRUG MONITORING PROGRAM REVIEWED*: No *COPY OF PRESCRIPTION DRUG MONITORING REPORT IN PATIENT PRAVEEN: No Referrals: Iggy Chicas NP [Primary Care Provider] - Forms: ED Department Discharge - My Orders Last 24 Hours: My Active Orders 02/14/19 23:55 CULTURE BLOOD [BC] Stat 02/15/19 00:44 CULTURE BLOOD [BC] Stat 02/15/19 01:02 Vancomycin 1.75 gm Sodium Chloride 0.9% [Normal Saline] 250 ml IV NOW - Assessment/Plan Last 24 Hours: My Active Orders 02/14/19 23:55 CULTURE BLOOD [BC] Stat 02/15/19 00:44 CULTURE BLOOD [BC] Stat 02/15/19 01:02 Vancomycin 1.75 gm Sodium Chloride 0.9% [Normal Saline] 250 ml IV NOW
--- NOTE | 2019-02-15 00:47 | CRLCR ---
INDICATION: Fever TECHNIQUE: Chest 2 views. COMPARISON: 04/14/2018 FINDINGS: Cardiovascular and mediastinum: Heart size and vasculature are normal in caliber and appearance. Mediastinum is within normal limits. Lungs and pleural spaces: Right-sided [id number] tip terminates in the proximal SVC. Lungs are clear. No sign of infiltrate. Stable 10 millimeter nodule left lower lobe. No sign of pleural effusion. No pneumothorax. Bones and soft tissues: No significant findings. IMPRESSION: No evidence for pneumonia. 10 millimeter nodule left lower lobe. Dictated by Tyrel Patel MD @ 02/15/2019 12:45:23 AM Dictated by: Tyrel Patel MD @ 02/15/2019 00:45:33 (Electronically Signed)
[2019-02-15] MEDS ORDERED: Sodium Chloride 0.9% 1,000 ML IV ONE (03:11)
--- NOTE | 2019-02-15 03:30 | PCM.HP ---
H&P History of Present Illness - General Date of Service: 02/14/19 Admit Problem/Dx: Admission Diagnosis/Problem Admission Diagnosis/Problem Sepsis Source of Information: Patient History Limitations: Reports: No Limitations - History of Present Illness Initial Comments - Free Text/Narative: - History of Present Illness INITIAL COMMENTS - FREE TEXT/NARRATIVE: 68 yo male with pancreatic CA presents with a fever since midday yesterday. Was in to the clinic yesterday morning for a different issue and has not reported his current illness to his primary. Called the provider group who tx's his CA and was told to come right in to the ER and to not take any of his oral meds before arrival, he did not ask why he shouldn't take these meds. He denies any other sx's other than a mild sore throat currently. Did have some mild nausea earlier. Has a Powerport since 01/11/19 placed at [place]. Is followed for his CA by [facility]. Onset of Symptoms: Reports: Today Duration of Symptoms: Reports: Hour(s): Location: Reports: Generalized (fever, not feeling well) Severity: Moderate Improves with: Reports: None Worsens with: Reports: None Context: Reports: Other (pancreatic cancer, chemo therapy this week. ) Associated Symptoms: Reports: Fever/Chills, Nausea/Vomiting - Related Data Allergies/Adverse Reactions: Allergies Allergy/AdvReac Type Severity Reaction Status Date / Time Sulfa (Sulfonamide AdvReac Hallucinati Verified 02/14/19 23:00 Antibiotics) ons environmental Allergy Hives Uncoded 02/14/19 23:00 Home Medications: Home Meds Ca Carbonate/Vitamin D3/Vit K [Calcium + D Soft Chewable Tab] 1 tab PO BID 12/03 [History] Cyanocobalamin (Vitamin B-12) [B-12] 2,500 mcg PO DAILY 12/03/14 [History] Gabapentin [Neurontin] 600 mg PO TID 12/03/14 [History] Levothyroxine 125 mcg PO ACBRK 12/03/14 [History] Multivitamin with Minerals [Multivitamins with Minerals] 1 each PO BID 12/03/14 [History] Sertraline [Zoloft] 100 mg PO DAILY 12/03/14 [History] Vitamin B Complex [B Complex] 1 tab PO DAILY 12/03/14 [History] DULoxetine HCl [Cymbalta] 60 mg PO BID 02/12/16 [History] Omeprazole 40 mg PO BID 02/12/16 [History] Cyclobenzaprine [Flexeril] 10 mg PO TID PRN 10/21/16 [History] Acetaminophen 650 mg PO Q4H PRN 05/04/18 [History] Calcium Carbonate [Calcium] 500 mg PO DAILY PRN 05/04/18 [History] EPINEPHrine [Epipen 2-Viral] 0.3 ml IM ASDIRECTED 05/04/18 [History] rOPINIRole [Requip] 1 mg PO BEDTIME 05/04/18 [History] Polyethylene Glycol 3350 17 g PO QPM 01/17/19 [History] Prochlorperazine Maleate [Compazine] 10 mg PO Q6HR PRN 01/17/19 [History] Venlafaxine [Effexor] 75 mg PO DAILY 01/17/19 [History] oxyCODONE 10 mg PO Q4HR PRN 01/17/19 [History] 0.9 % Sodium Chloride [Sodium Chloride] 10 ml GTUBE DAILY 02/15/19 [History] Amylase/Lipase/Protease [Creon DR 6,000 Unit] 6,000 unit PO TID 02/15/19 [ History] Aspirin [Aspirin EC] 325 mg PO DAILY 02/15/19 [History] Diphenhyd/Lidocaine/Nystatin [First-Bxn Mouthwash] 5 ml SSPIT QID 02/15/19 [ History] Gemcitabine HCl 800 mg IV ASDIRECTED 02/15/19 [History] Morphine [MS Contin] 15 mg PO Q12HR 02/15/19 [History] PACLitaxel Protein-Bound [Abraxane] 298 mg IV ASDIRECTED 02/15/19 [History] atorvaSTATin [Lipitor] 10 mg PO BEDTIME 02/15/19 [History] Past Medical History HEENT History: Reports: Impaired Vision, Other (See Below) Other HEENT History: wears glasses, infection in right submandibular gland Cardiovascular History: Reports: High Cholesterol Respiratory History: Reports: Sleep Apnea Gastrointestinal History: Reports: Bowel Obstruction, Cholelithiasis, Colon Polyp, Gastritis, GERD, Jaundice Genitourinary History: Reports: Prostate Disorder Musculoskeletal History: Reports: Arthritis, Back Pain, Chronic, Fracture, Neck Pain, Chronic, Other (See Below) Other Musculoskeletal History: polyneuropathy. R knee/ankle sprain Neurological History: Reports: CVA Psychiatric History: Reports: Anxiety Endocrine/Metabolic History: Reports: Hypothyroidism, Obesity/BMI 30+ Hematologic History: Reports: B12 Deficiency Oncologic (Cancer) History: Reports: Pancreatic - Infectious Disease History Infectious Disease History: Reports: Chicken Pox, MRSA Other Infectious Disease History: MRSA 2011 - Past Surgical History HEENT Surgical History: Reports: Oral Surgery Respiratory Surgical History: Reports: None GI Surgical History: Reports: Bariatric Procedure, Colonoscopy, EGD, Hernia Repair/Other Other GI Surgeries/Procedures: colon resection; Panniculectomy Male Surgical History: Reports: TURP-Transurethral Resection of Prostate Endocrine Surgical History: Reports: Other (See Below) Other Endocrine Surgeries/Procedures: Salvitory gland Neurological Surgical History: Reports: Spinal Fusion Musculoskeletal Surgical History: Reports: Carpal Tunnel, Shoulder Surgery, Other (See Below) Other Musculoskeletal Surgeries/Procedures:: left rotator cuff repair Social & Family History - Family History Family Medical History: Noncontributory HEENT: Reports: None Cardiac: Reports: Heart Failure, Hypertension Respiratory: Reports: Asthma, Other (See Below) Other Respiratory Family Hisory: emphysema Oncologic: Reports: Breast, Lung, Lymphoma, Prostate, Other (See Below) Other Oncologic Family History: stomach - Tobacco Use Smoking Status *Q: Current Every Day Smoker Years of Tobacco use: 50 Packs/Tins Daily: 3 Used Tobacco, but Quit: Yes Month/Year Tobacco Last Used: 2010 Second Hand Smoke Exposure: No - Caffeine Use Caffeine Use: Reports: Coffee Other Caffeine Use: 2 pots a days - Recreational Drug Use Recreational Drug Use: No - Living Situation & Occupation Living situation: Reports: Occupation: Retired (lives with his of 33 years Ce [place], [place]. has 3 children and 1 step-child all adults) H&P Review of Systems - Review of Systems: Review Of Systems: See Below General: Reports: Fever, Chills, Malaise, Fatigue, Decreased Appetite, Weight Loss HEENT: Reports: Glasses, Other (dentures) Pulmonary: Reports: No Symptoms Gastrointestinal: Reports: Abdominal Pain (chronic, pancreatic cancer with Port- a-cath in right upper chest shunt right upper quadrant.), Decreased Appetite, Nausea, Other (heartburn ) Genitourinary: Reports: No Symptoms Musculoskeletal: Reports: Back Pain, Muscle Pain Skin: Reports: Pallor Psychiatric: Reports: No Symptoms Neurological: Reports: No Symptoms Hematologic/Lymphatic: Reports: Anemia Immunologic: Reports: No Symptoms Exam - Exam Exam: See Below - Vital Signs Vital Signs: Last Vital Signs Temp 37.3 C 02/15/19 01:26 Pulse 106 H 02/15/19 01:26 Resp 14 02/15/19 01:26 BP 105/60 02/15/19 01:26 Pulse Ox 95 02/15/19 01:26 Weight: 100.698 kg - Exam Quality Assessment: Central Line/PICC, DVT Prophylaxis General: Alert, Oriented, Cooperative, Mild Distress HEENT: PERRLA, Conjunctiva Clear, Hearing Intact, Mucosa Moist & Jovista, Nares Patent, Glasses, Other (dentures) Neck: Supple, Trachea Midline, Full Range of Motion Lungs: Clear to Auscultation, Normal Respiratory Effort Cardiovascular: Regular Rate, Regular Rhythm, Normal S1, Normal S2 GI/Abdominal Exam: Soft, Non-Tender, No Distention, Other (biliary drain noted to right upper abdomen, flows to leg bag. fluid clear dark brown color) (Male) Exam: Deferred Rectal (Males) Exam: Deferred Back Exam: Normal Inspection Extremities: Normal Range of Motion, Non-Tender, Pedal Edema (1+) Skin: Warm, Dry, Intact Neurological: Reflexes Equal Bilateral, Strength Equal Bilateral, Normal Speech , Normal Tone Neuro Extensive - Mental Status: Alert, Oriented x3, Normal Mood/Affect Psychiatric: Alert, Normal Affect, Normal Mood - Patient Data Lab Results Last 24 hrs: Laboratory Results - last 24 hr 02/14/19 02/14/19 02/15/19 Range/Units 23:10 23:10 00:01 WBC 19.5 H (4.5-11.0) K/uL RBC 3.24 L (4.30-5.90) M/uL Hgb 10.0 L D (12.0-15.0) g/dL Hct 30.9 L (40.0-54.0) % MCV 95 (80-98) fL MCH 31 (27-31) pg MCHC 32 (32-36) % Plt Count 152 (150-400) K/uL Neut % (Auto) Not Reportable Lymph % (Auto) Not Reportable Maury % (Auto) Not Reportable Eos % (Auto) Not Reportable Baso % (Auto) Not Reportable Add Manual Diff Yes Neutrophils % (Manual) 90 H (36-66) % Band Neutrophils % 6 (5-11) % Lymphocytes % (Manual) 3 L (24-44) % Monocytes % (Manual) 1 L (2-6) % Anisocytosis Marked H PT 11.4 (9.5-12.0) sec INR 1.04 (0.80-1.20) Sodium (140-148) mmol/L Potassium (3.6-5.2) mmol/L Chloride (100-108) mmol/L Carbon Dioxide (21-32) mmol/L Anion Gap (5.0-14.0) mmol/L BUN (7-18) mg/dL Creatinine (0.8-1.3) mg/dL Est Cr Clr Drug Dosing mL/min Estimated GFR (MDRD) (>60) Glucose (74-106) mg/dL Lactic Acid (0.4-2.0) mmol/L Calcium (8.5-10.1) mg/dL Magnesium (1.8-2.4) mg/dL Total Bilirubin (0.2-1.0) mg/dL AST (15-37) U/L ALT (12-78) U/L Alkaline Phosphatase (46-116) U/L C-Reactive Protein 6.59 H (0.0-0.3) mg/dL Total Protein (6.4-8.2) g/dL Albumin (3.4-5.0) g/dL Globulin (2.3-3.5) g/dL Albumin/Globulin Ratio (1.2-2.2) Amylase (25-115) U/L Lipase (73-393) U/L Urine Color Urine Appearance Urine pH (4.5-8.0) Ur Specific [place] (1.008-1.030) Urine Protein (NEGATIVE) mg/dL Urine Glucose (UA) (NEGATIVE) mg/dL Urine Ketones (NEGATIVE) mg/dL Urine Occult Blood (NEGATIVE) Urine Nitrite (NEGAITVE) Urine Bilirubin (NEGATIVE) Urine Urobilinogen (NORMAL) mg/dL Ur Leukocyte Esterase (NEGATIVE) Urine RBC (0-5) Urine WBC (0-5) Ur Epithelial Cells Amorphous Sediment Urine Bacteria Urine Mucus 02/15/19 02/15/19 02/15/19 Range/Units 00:01 00:08 01:44 WBC (4.5-11.0) K/uL RBC (4.30-5.90) M/uL Hgb (12.0-15.0) g/dL Hct (40.0-54.0) % MCV (80-98) fL MCH (27-31) pg MCHC (32-36) % Plt Count (150-400) K/uL Neut % (Auto) Lymph % (Auto) Maury % (Auto) Eos % (Auto) Baso % (Auto) Add Manual Diff Neutrophils % (Manual) (36-66) % Band Neutrophils % (5-11) % Lymphocytes % (Manual) (24-44) % Monocytes % (Manual) (2-6) % Anisocytosis PT (9.5-12.0) sec INR (0.80-1.20) Sodium 139 L (140-148) mmol/L Potassium 3.7 (3.6-5.2) mmol/L Chloride 103 (100-108) mmol/L Carbon Dioxide 24 (21-32) mmol/L Anion Gap 15.7 H (5.0-14.0) mmol/L BUN 9 (7-18) mg/dL Creatinine 0.7 L (0.8-1.3) mg/dL Est Cr Clr Drug Dosing 119.06 mL/min Estimated GFR (MDRD) > 60 (>60) Glucose 107 H (74-106) mg/dL Lactic Acid 1.3 (0.4-2.0) mmol/L Calcium 8.5 (8.5-10.1) mg/dL Magnesium 1.5 L (1.8-2.4) mg/dL Total Bilirubin 1.6 H D (0.2-1.0) mg/dL AST 30 (15-37) U/L ALT 27 (12-78) U/L Alkaline Phosphatase 291 H D (46-116) U/L C-Reactive Protein (0.0-0.3) mg/dL Total Protein 6.5 (6.4-8.2) g/dL Albumin 2.2 L (3.4-5.0) g/dL Globulin 4.3 H (2.3-3.5) g/dL Albumin/Globulin Ratio 0.5 L (1.2-2.2) Amylase 14 L (25-115) U/L Lipase 82 (73-393) U/L Urine Color Yellow Urine Appearance Clear Urine pH 8.0 (4.5-8.0) Ur Specific [place] 1.010 (1.008-1.030) Urine Protein Negative (NEGATIVE) mg/dL Urine Glucose (UA) Normal (NEGATIVE) mg/dL Urine Ketones Negative (NEGATIVE) mg/dL Urine Occult Blood Negative (NEGATIVE) Urine Nitrite Negative (NEGAITVE) Urine Bilirubin Negative (NEGATIVE) Urine Urobilinogen Normal (NORMAL) mg/dL Ur Leukocyte Esterase Negative (NEGATIVE) Urine RBC 0-5 (0-5) Urine WBC 0-5 (0-5) Ur Epithelial Cells Rare Amorphous Sediment Not seen Urine Bacteria Few Urine Mucus Not seen Result Diagrams: 02/14/19 23:10 02/15/19 00:01 Omid Results Last 24 hrs: Microbiology 02/14/19 23:27 Influenza Type A Antigen Screen - Final Nasal, Unspecified NEGATIVE INFLUENZA A VIRUS AG Influenza Type B Antigen Screen - Final NEGATIVE INFLUENZA B VIRUS AG - Problem List (1) Central line-associated bloodstream infection SNOMED Code(s): 954139906 ICD Code: T80.211A - BLOODSTREAM INFECTION DUE TO CENTRAL VENOUS CATHETER, INIT Status: Acute Priority: High Current Visit: Yes Qualifiers: Encounter type: initial encounter Qualified Code(s): T80.211A - Bloodstream infection due to central venous catheter, initial encounter (2) Pancreatic cancer SNOMED Code(s): 999532258 ICD Code: C25.9 - MALIGNANT NEOPLASM OF PANCREAS, UNSPECIFIED Status: Acute Priority: High Current Visit: Yes Qualifiers: Pancreatic malignancy location: head of pancreas Qualified Code(s): C25.0 - Malignant neoplasm of head of pancreas (3) Tobacco dependence syndrome SNOMED Code(s): 72240203 ICD Code: F17.200 - NICOTINE DEPENDENCE, UNSPECIFIED, UNCOMPLICATED Status : Chronic Priority: Low Current Visit: Yes (4) History of bariatric surgery SNOMED Code(s): 048310014, 622485940 ICD Code: Z98.84 - BARIATRIC SURGERY STATUS Status: Acute Priority: Low Current Visit: Yes Problem List Initiated/Reviewed/Updated: Yes Orders Last 24hrs: Active Orders 24 hr Category Date Time Status Patient Status Manage Transfer [TRANSFER] Routine ADT 02/15/19 02:59 Active CULTURE BLOOD [BC] Stat Lab 02/14/19 23:55 Received CULTURE BLOOD [BC] Stat Lab 02/15/19 00:44 Ordered Sodium Chloride 0.9% [Normal Saline] 1,000 ml Med 02/15/19 03:11 Active IV ONETIME Resuscitation Status Routine Resus Stat 02/15/19 03:02 Ordered Medication Orders Sodium Chloride (Normal Saline) 1,000 mls @ 125 mls/hr IV ONETIME ONE Stop: 02/15/19 11:10 Last Admin: 02/15/19 03:12 Dose: 125 mls/hr Assessment/Plan Comment:: ASSESSMENT / PLAN - 68 yo male with pancreatic CA presents with a fever since midday yesterday. Was in to the clinic yesterday morning for a different issue and has not reported his current illness to his primary. Called the provider group who tx's his CA and was told to come right in to the ER and to not take any of his oral meds before arrival, he did not ask why he shouldn't take these meds. He denies any other sx's other than a mild sore throat currently. Did have some mild nausea earlier. Has a Powerport since 01/11/19 placed at [place]. Is followed for his CA by [facility]. Labs in ER show a WBC 19.5, last WBC on 02/12/2019 5.9 Hgb 11.5, now 10.0, IV Vancomycin 1 gram and IV fluids started in the ER. will admit to [address] [place] [address] for further care. and Mrs. Wellington agree with plan of care. Plan Sepsis, Central line associated bloodstream infections -Admit to [address] [place] [address] for further monitoring -IV Fluids for rehydration NS at 125 mL per hour -IV Antibiotic; Vancomycin 1 gram IV every 12 hours -Advise to notify nurses of any chest pain or other symptoms -blood cultures x2 pending, one from central line, addition bloody fluid culture from ascites fluid Pancreatic cancer, this week finished 3rd week of chemotherapy, will now have 2 weeks off, has follow up appointments next week, and repeat PET scan in a week. He has a right port-a-cath in right upper chest place 01.03.2019 at [facility] and Biliary drain in right upper abdomen placed at [facility], has appoint next Tuesday02/21/[address] drain [address]. Tobacco use -declines patch Hx of Bariatric Surgery by Dr. Artur Young -continue Vitamin B12 supplement Maintenance issues -Orders home meds: on hold -Nutrition:regular diet -Alexander catheter not indicated at this time -DVT: SCD -PPI; IV Protonix 40mg bid -consult OT for discharge planning -consult PT for strengthening. CODE STATUS: DNR/DNI Admission status: Admit to [address] [place] [address] Admission justification. This patient will be admitted for inpatient services and is medically appropriate meeting medical necessity for inpatient admission as outlined in my documentation. I reasonably expect the patient will require inpatient services that span. Time over 2 midnights. I reasonably expect this patient to be discharged or transferred within 96 hours after admission to the critical access hospital. Disposition: home with Ce Primary care provider: Iggy Chicas NP Hospitalist: Dr. Jose
[2019-02-15] MEDS ORDERED: Morphine 2 MG/ML Syringe IVPUSH PRN (03:50)
[2019-02-15] MEDS ORDERED: Melatonin 3 MG Tab PO PRN (03:50)
[2019-02-15] MEDS ORDERED: LORazepam 2 MG/ML SDV IV PRN (03:50)
[2019-02-15] MEDS ORDERED: Docusate Sodium 100 MG Cap PO PRN (03:50)
[2019-02-15] MEDS ORDERED: Albuterol/Ipratropium 3.0-0.5 MG/3 ML Neb Soln NEB PRN (03:50)
[2019-02-15] MEDS ORDERED: Albuterol 0.083% 2.5 MG/3 ML Neb Soln NEB PRN (03:50)
[2019-02-15] MEDS ORDERED: Bisacodyl 5 MG Tab PO PRN (03:50)
[2019-02-15] MEDS ORDERED: Cyclobenzaprine 10 MG Tab PO PRN (03:50)
[2019-02-15] MEDS ORDERED: Ondansetron 4 MG Tab.DIS PO PRN (03:50)
[2019-02-15] MEDS ORDERED: Morphine 15 MG Tab.ER PO SCH (04:00)
[2019-02-15] MEDS ORDERED: Pantoprazole 40 MG Vial IVPUSH SCH ×2 (04:00→18:00)
[2019-02-15] MEDS ORDERED: NYSTATIN SSPIT SCH (06:00)
[2019-02-15] MEDS ORDERED: DIPHENHYD SSPIT SCH (06:00)
[2019-02-15] MEDS ORDERED: LIDOCAINE SSPIT SCH (06:00)
[2019-02-15] MEDS ORDERED: Non-Formulary Medication 1 Each (Levothyroxine [Levothyroxine] 125 MCG) PO SCH (07:30)
[2019-02-15] MEDS: Levothyroxine 100 MCG Tab PO SCH (08:30)
[2019-02-15] MEDS: Levothyroxine 25 MCG Tab PO SCH (08:30)
[2019-02-15] MEDS: Cyanocobalamin (Vitamin B12) 1,000 MCG Tab PO SCH (08:31)
[2019-02-15] MEDS: DULoxetine 30 MG Cap PO SCH ×2 (08:31→20:03)
[2019-02-15] MEDS: Gabapentin 300 MG Cap PO SCH ×3 (08:31→20:02)
[2019-02-15] MEDS: Acetaminophen 325 MG Tab PO PRN ×4 (08:39→21:42)
[2019-02-15] MEDS: oxyCODONE 5 MG Tab PO PRN ×4 (08:40→21:42)
[2019-02-15] MEDS ORDERED: AMYLASE PO SCH (09:00)
[2019-02-15] MEDS ORDERED: PROTEASE PO SCH (09:00)
[2019-02-15] MEDS ORDERED: Sertraline 50 MG Tab PO SCH (09:00)
[2019-02-15] MEDS ORDERED: Venlafaxine 75 MG Tab PO SCH (09:00)
[2019-02-15] MEDS ORDERED: [UNRECOGNIZED DRUG - OTHER] PO SCH (09:00)
[2019-02-15] MEDS ORDERED: LIPASE PO SCH (09:00)
[2019-02-15] MEDS ORDERED: Sodium Chloride 0.9% 86 ML IV ONE (10:36)
[2019-02-15] MEDS ORDERED: Sodium Chloride 0.9% 10 ML Syringe FLUSH ONE (10:36)
--- NOTE | 2019-02-15 10:43 | PCM.PN ---
- General Info Date of Service: 02/15/19 Subjective Update: Mr. Garvey is a 68-year-old gentleman admitted through the emergency department last night with increased abdominal pain, fever, nausea and vomiting. He has a known diagnosis of pancreatic carcinoma and has been receiving chemotherapy. White blood cell count was elevated on admission but he has received a dose of Neupogen yesterday. He has felt better since admission, white blood cell count remains elevated. He is status post placement of a Pérez catheter on the right and has a percutaneous drainage tube through the wall of the abdomen. Functional Status: Reports: Pain Controlled, Urinating - Review of Systems General: Reports: Fever, Weakness, Chills Pulmonary: Reports: No Symptoms Cardiovascular: Reports: No Symptoms Gastrointestinal: Reports: Abdominal Pain, Decreased Appetite, Nausea, Vomiting. Denies: Diarrhea, Difficulty Swallowing Genitourinary: Reports: No Symptoms - Patient Data Vitals - Most Recent: Last Vital Signs Temp 98.9 F 02/15/19 07:00 Pulse 96 02/15/19 07:00 Resp 18 02/15/19 07:00 BP 103/61 02/15/19 07:00 Pulse Ox 95 02/15/19 07:00 Weight - Most Recent: 220 lb 5.985 oz I&O - Last 24 Hours: Intake & Output 02/14/19 02/15/19 02/15/19 22:59 06:59 14:59 Intake Total 256 200 Output Total 695 425 Balance -439 -225 Lab Results Last 24 Hours: Laboratory Results - last 24 hr 02/14/19 02/14/19 02/15/19 Range/Units 23:10 23:10 00:01 WBC 19.5 H (4.5-11.0) K/uL RBC 3.24 L (4.30-5.90) M/uL Hgb 10.0 L D (12.0-15.0) g/dL Hct 30.9 L (40.0-54.0) % MCV 95 (80-98) fL MCH 31 (27-31) pg MCHC 32 (32-36) % Plt Count 152 (150-400) K/uL Neut % (Auto) Not Reportable Lymph % (Auto) Not Reportable [place] % (Auto) Not Reportable Eos % (Auto) Not Reportable Baso % (Auto) Not Reportable Add Manual Diff Yes Neutrophils % (Manual) 90 H (36-66) % Band Neutrophils % 6 (5-11) % Lymphocytes % (Manual) 3 L (24-44) % Monocytes % (Manual) 1 L (2-6) % Anisocytosis Marked H PT 11.4 (9.5-12.0) sec INR 1.04 (0.80-1.20) Sodium (140-148) mmol/L Potassium (3.6-5.2) mmol/L Chloride (100-108) mmol/L Carbon Dioxide (21-32) mmol/L Anion Gap (5.0-14.0) mmol/L BUN (7-18) mg/dL Creatinine (0.8-1.3) mg/dL Est Cr Clr Drug Dosing mL/min Estimated GFR (MDRD) (>60) Glucose (74-106) mg/dL Lactic Acid (0.4-2.0) mmol/L Calcium (8.5-10.1) mg/dL Magnesium (1.8-2.4) mg/dL Total Bilirubin (0.2-1.0) mg/dL AST (15-37) U/L ALT (12-78) U/L Alkaline Phosphatase (46-116) U/L C-Reactive Protein 6.59 H (0.0-0.3) mg/dL Total Protein (6.4-8.2) g/dL Albumin (3.4-5.0) g/dL Globulin (2.3-3.5) g/dL Albumin/Globulin Ratio (1.2-2.2) Amylase (25-115) U/L Lipase (73-393) U/L Urine Color Urine Appearance Urine pH (4.5-8.0) Ur Specific Daphne (1.008-1.030) Urine Protein (NEGATIVE) mg/dL Urine Glucose (UA) (NEGATIVE) mg/dL Urine Ketones (NEGATIVE) mg/dL Urine Occult Blood (NEGATIVE) Urine Nitrite (NEGAITVE) Urine Bilirubin (NEGATIVE) Urine Urobilinogen (NORMAL) mg/dL Ur Leukocyte Esterase (NEGATIVE) Urine RBC (0-5) Urine WBC (0-5) Ur Epithelial Cells Amorphous Sediment Urine Bacteria Urine Mucus 02/15/19 02/15/19 02/15/19 Range/Units 00:01 00:08 01:44 WBC (4.5-11.0) K/uL RBC (4.30-5.90) M/uL Hgb (12.0-15.0) g/dL Hct (40.0-54.0) % MCV (80-98) fL MCH (27-31) pg MCHC (32-36) % Plt Count (150-400) K/uL Neut % (Auto) Lymph % (Auto) [place] % (Auto) Eos % (Auto) Baso % (Auto) Add Manual Diff Neutrophils % (Manual) (36-66) % Band Neutrophils % (5-11) % Lymphocytes % (Manual) (24-44) % Monocytes % (Manual) (2-6) % Anisocytosis PT (9.5-12.0) sec INR (0.80-1.20) Sodium 139 L (140-148) mmol/L Potassium 3.7 (3.6-5.2) mmol/L Chloride 103 (100-108) mmol/L Carbon Dioxide 24 (21-32) mmol/L Anion Gap 15.7 H (5.0-14.0) mmol/L BUN 9 (7-18) mg/dL Creatinine 0.7 L (0.8-1.3) mg/dL Est Cr Clr Drug Dosing 119.06 mL/min Estimated GFR (MDRD) > 60 (>60) Glucose 107 H (74-106) mg/dL Lactic Acid 1.3 (0.4-2.0) mmol/L Calcium 8.5 (8.5-10.1) mg/dL Magnesium 1.5 L (1.8-2.4) mg/dL Total Bilirubin 1.6 H D (0.2-1.0) mg/dL AST 30 (15-37) U/L ALT 27 (12-78) U/L Alkaline Phosphatase 291 H D (46-116) U/L C-Reactive Protein (0.0-0.3) mg/dL Total Protein 6.5 (6.4-8.2) g/dL Albumin 2.2 L (3.4-5.0) g/dL Globulin 4.3 H (2.3-3.5) g/dL Albumin/Globulin Ratio 0.5 L (1.2-2.2) Amylase 14 L (25-115) U/L Lipase 82 (73-393) U/L Urine Color Yellow Urine Appearance Clear Urine pH 8.0 (4.5-8.0) Ur Specific Daphne 1.010 (1.008-1.030) Urine Protein Negative (NEGATIVE) mg/dL Urine Glucose (UA) Normal (NEGATIVE) mg/dL Urine Ketones Negative (NEGATIVE) mg/dL Urine Occult Blood Negative (NEGATIVE) Urine Nitrite Negative (NEGAITVE) Urine Bilirubin Negative (NEGATIVE) Urine Urobilinogen Normal (NORMAL) mg/dL Ur Leukocyte Esterase Negative (NEGATIVE) Urine RBC 0-5 (0-5) Urine WBC 0-5 (0-5) Ur Epithelial Cells Rare Amorphous Sediment Not seen Urine Bacteria Few Urine Mucus Not seen Omid Results Last 24 Hours: Microbiology 02/15/19 03:50 Gram Stain - Final Ascities Fluid 02/14/19 23:27 Influenza Type A Antigen Screen - Final Nasal, Unspecified NEGATIVE INFLUENZA A VIRUS AG Influenza Type B Antigen Screen - Final NEGATIVE INFLUENZA B VIRUS AG Med Orders - Current: Current Medications Acetaminophen (Tylenol) 650 mg PO Q4H PRN PRN Reason: Pain (Mild 1-3)/fever Last Admin: 02/15/19 08:39 Dose: 650 mg Albuterol (Proventil Neb Soln) 2.5 mg NEB Q4H PRN PRN Reason: Shortness Of Breath/wheezing Albuterol/Ipratropium (Duoneb 3.0-0.5 Mg/3 Ml) 3 ml NEB QID PRN PRN Reason: Shortness Of Breath/wheezing Bisacodyl (Dulcolax) 5 mg PO DAILY PRN PRN Reason: Constipation Lidocaine HCl 30 ml/ Al Hydroxide/Mg Hydroxide 30 ml/Diphenhydramine HCl 75 mg 0 ml MUCMEM QID [facility] Cyanocobalamin (Vitamin B12) 2,500 mcg PO DAILY [facility] Last Admin: 02/15/19 08:31 Dose: 2,500 mcg Cyclobenzaprine HCl (Flexeril) 10 mg PO TID PRN PRN Reason: Muscle Spasm Docusate Sodium (Colace) 100 mg PO BID PRN PRN Reason: Constipation Duloxetine HCl (Cymbalta) 60 mg PO BID [facility] Last Admin: 02/15/19 08:31 Dose: 60 mg Gabapentin (Neurontin) 600 mg PO TID [facility] Last Admin: 02/15/19 08:31 Dose: 600 mg Sodium Chloride (Normal Saline) 1,000 mls @ 125 mls/hr IV ASDIRECTED [facility] Vancomycin HCl 1.5 gm/ Sodium (Chloride) 250 mls @ 165 mls/hr IV Q12H [facility] Piperacillin Sod/Tazobactam (Sod 3.375 gm/ Sodium Chloride) 50 mls @ 100 mls/ hr IV Q6H [facility] Levothyroxine Sodium (Synthroid) 100 mcg PO ACBREAKFAST [facility] Last Admin: 02/15/19 08:30 Dose: 100 mcg Levothyroxine Sodium (Levothyroxine) 25 mcg PO ACBREAKFAST [facility] Last Admin: 02/15/19 08:30 Dose: 25 mcg Lorazepam (Ativan) 1 mg IV Q6H PRN PRN Reason: Nausea/Vomiting Melatonin (Melatonin) 6 mg PO BEDTIME PRN PRN Reason: Insomnia Morphine Sulfate (Morphine) 2 mg IVPUSH Q2H PRN PRN Reason: Pain (severe 7-10) Morphine Sulfate (Ms Contin) 15 mg PO Q12H [facility] Non-Formulary Medication (Amylase/Lipase/Protease [Creon Dr 6,000 Unit]) 6,000 unit PO TID [facility] Ondansetron HCl (Zofran Odt) 4 mg PO Q6H PRN PRN Reason: Nausea able to take PO Oxycodone HCl (Oxycodone) 10 mg PO Q4H PRN PRN Reason: Pain (moderate 4-6) Last Admin: 02/15/19 08:40 Dose: 10 mg Pantoprazole Sodium (Protonix) 40 mg PO BIDAC [facility] Polyethylene Glycol (Miralax) 17 gm PO QPM [facility] Ropinirole HCl (Requip) 1 mg PO BEDTIME [facility] Sertraline HCl (Zoloft) 100 mg PO DAILY [facility] Last Admin: 02/15/19 08:31 Dose: 100 mg Sodium Chloride (Saline Flush) 10 ml FLUSH DAILY [facility] Tbo-Filgrastim (Granix) 480 mcg SUBCUT ONETIME ONE Stop: 02/15/19 10:31 Venlafaxine HCl (Effexor) 75 mg PO DAILY [facility] Last Admin: 02/15/19 08:31 Dose: 75 mg Discontinued Medications Acetaminophen (Tylenol Extra Strength) 1,000 mg PO ONETIME ONE Stop: 02/14/19 22:58 Last Admin: 02/14/19 23:20 Dose: 1,000 mg Lactated Ringer's (Ringers, Lactated) 1,000 mls @ 1,000 mls/hr IV BOLUS ONE Stop: 02/14/19 23:48 Last Admin: 02/15/19 05:04 Dose: Not Given Vancomycin HCl 1.75 gm/ Sodium (Chloride) 250 mls @ 150 mls/hr IV NOW STA Stop: 02/15/19 02:41 Last Admin: 02/15/19 01:19 Dose: 150 mls/hr Sodium Chloride (Normal Saline) 1,000 mls @ 125 mls/hr IV ONETIME ONE Stop: 02/15/19 11:10 Last Admin: 02/15/19 03:12 Dose: 125 mls/hr Vancomycin HCl 1 gm/ Sodium (Chloride) 250 mls @ 150 mls/hr IV Q12H [facility] Morphine Sulfate (Ms Contin) 15 mg PO Q12H [facility] Last Admin: 02/15/19 05:44 Dose: 15 mg Non-Formulary Medication (Levothyroxine [Levothyroxine]) 125 mcg PO ACBRK [facility] Ondansetron HCl (Zofran Odt) 4 mg PO ONETIME ONE Stop: 02/14/19 22:28 Last Admin: 02/15/19 05:03 Dose: Not Given Oxycodone HCl (Oxycodone) 10 mg PO ONETIME ONE Stop: 02/14/19 22:58 Last Admin: 02/14/19 23:21 Dose: 10 mg Pantoprazole Sodium (Protonix Iv) 40 mg IVPUSH Q12H [facility] Last Admin: 02/15/19 05:43 Dose: 40 mg - Exam Quality Assessment: DVT Prophylaxis General: Alert, Oriented, Cooperative, Mild Distress Lungs: Clear to Auscultation, Normal Respiratory Effort Cardiovascular: Regular Rate, Regular Rhythm, No Murmurs GI/Abdominal Exam: Soft, No Organomegaly, Tender. No: Distended, Guarding, Rigid, Rebound Extremities: Non-Tender, No Pedal Edema - Problem List Review Problem List Initiated/Reviewed/Updated: Yes - My Orders Last 24 Hours: My Active Orders 02/15/19 10:29 Abdomen Pelvis w Cont [CT] Stat 02/15/19 10:30 Tbo-Filgrastim [Granix] 480 mcg SUBCUT ONETIME ONE 02/15/19 10:45 Piperacillin/Tazobactam [Zosyn] 3.375 gm Sodium Chloride 0.9% [Normal Saline] 50 ml IV Q6H - Plan Plan:: ASSESSMENT / PLAN Fever/sepsis-probable abdominal source, related to percutaneous drainage tube and underlying pancreatic carcinoma with obstruction. Less likely central line infection -CT scan of the abdomen and pelvis -IV Fluids for rehydration NS at 125 mL per hour -IV Antibiotic; Vancomycin 1 gram IV every 12 hours -Add Zosyn 3.375 mg IV every 6 hours to cover abdominal lucas -blood cultures x2 pending, one from central line, addition bloody fluid culture from ascites fluid Pancreatic cancer- this week finished 3rd week of chemotherapy, will now have 2 weeks off, has follow up appointments next week, and repeat PET scan in a week. He has a right port-a-cath in right upper chest place [address] [facility] and Biliary drain in right upper abdomen placed at [facility], has appoint next Tuesday02/21/[address] to have [address] drain [address]. -Culture from drain pending -Add Zosyn as above -CT scan as above Tobacco use -declines patch Hx of Bariatric Surgery by Dr. Artur Young -continue Vitamin B12 supplement Maintenance issues -Orders home meds: on hold -Nutrition:regular diet -Alexander catheter not indicated at this time -DVT: SCD -PPI; Lovenox 40 mg subcutaneous daily -consult OT for discharge planning -consult PT for strengthening. CODE STATUS: DNR/DNI Admission status: Admit to [address] [place] [address] Admission justification. This patient will be admitted for inpatient services and is medically appropriate meeting medical necessity for inpatient admission as outlined in my documentation. I reasonably expect the patient will require inpatient services that span. Time over 2 midnights. I reasonably expect this patient to be discharged or transferred within 96 hours after admission to the critical access hospital. Disposition: home with Ce Primary care provider: Iggy Chicas NP Hospitalist: Dr. Jose
[2019-02-15] MEDS ORDERED: Iopamidol 612 MG/ML 150 ML Bottle IV SCH (10:45)
[2019-02-15] MEDS: Sodium Chloride 0.9% 1,000 ML IV SCH (11:54)
[2019-02-15] MEDS: Lidocaine 2% 30 ML, Alum Hydrox/Mag Hydrox/Simeth 30 ML, diphenhydrAMINE 75 MG MUCMEM SCH ×9 (11:58→21:41)
[2019-02-15] MEDS: Enoxaparin 40 MG/0.4 ML Syringe SUBCUT SCH (12:03)
[2019-02-15] MEDS: Lactobacillus Rhamnosus GG (Probiotic) Cap PO SCH ×2 (12:03→20:03)
[2019-02-15] MEDS: Sodium Chloride 0.9% 10 ML Syringe FLUSH SCH (12:03)
--- NOTE | 2019-02-15 12:03 | CRLCT ---
INDICATION Abdominal pain. Fever. History of pancreatic cancer. TECHNIQUE CT scan of the abdomen and pelvis with 150 cc of Isovue-[address] scan of the abdomen and pelvis dated 15 September 2018. Chest x-ray dated 14 April 2015. FINDINGS The lung bases show trace dependent atelectasis. 1.0 cm pulmonary nodule in the left lower lobe best seen on image 3 of series 2 which was present on the 2015 chest x-ray. No focal abnormalities identified in the visualized portions of the liver, spleen, and adrenal glands. 3.5 cm mass in the head of the pancreas is increased in size and on the previous study measured 2.2 cm. Dilation of the main pancreatic duct. Percutaneous biliary drain extending through the left lobe of the liver. Mild bile duct dilation. A few small cysts in the kidneys. The kidneys are otherwise unremarkable. No hydronephrosis. No obstructing uroliths. Postsurgical changes of the stomach. Anastomotic sutures in the mid small bowel. The remainder of the GI tract is incompletely distended but shows no gross abnormalities. No retroperitoneal, pelvic sidewall, or mesenteric adenopathy. Degenerative changes of the spine. Osteopenia. Stabilization hardware in the lower lumbar spine. Impression 3.5 cm mass in the pancreatic head representing the patient`s pancreatic cancer is increased in size. Bile duct dilation and dilation of the main pancreatic duct. Percutaneous biliary drain in place. Dictated by: Brendan Alvares MD @ 02/15/2019 12:01:11 (Electronically Signed)
[2019-02-15] MEDS: Piperacillin/Tazobactam/Dext 3.375 GM in Premix Bag 1 BAG IV SCH ×2 (13:26→18:16)
[2019-02-15] MEDS ORDERED: Polyethylene Glycol 3350 Powder 119 GM Bottle PO SCH (17:00)
[2019-02-15] MEDS ORDERED: Loratadine 10 MG Tab.DIS PO PRN (17:24)
[2019-02-15] MEDS: Pantoprazole 40 MG Tab.CR PO SCH (17:34)
[2019-02-15] MEDS: Polyethylene Glycol 3350 Powder 17 GM Packet PO SCH (17:47)
[2019-02-15] MEDS: Morphine 15 MG Tab.ER PO SCH (18:18)
[2019-02-15] MEDS: Amylase/Lipase/Protease 12,000 Unit Cap.CR PO SCH (18:18)
[2019-02-15] MEDS: Venlafaxine 75 MG Tab PO SCH (20:03)
[2019-02-15] MEDS: rOPINIRole 1 MG Tab PO SCH (20:03)
[2019-02-16] MEDS: Acetaminophen 325 MG Tab PO PRN (04:05)
[2019-02-16] MEDS: oxyCODONE 5 MG Tab PO PRN ×5 (04:05→20:47)
[2019-02-16] MEDS: Morphine 15 MG Tab.ER PO SCH ×2 (06:19→18:05)
[2019-02-16] MEDS: Lidocaine 2% 30 ML, Alum Hydrox/Mag Hydrox/Simeth 30 ML, diphenhydrAMINE 75 MG MUCMEM SCH ×12 (06:20→22:59)
[2019-02-16] MEDS: Piperacillin/Tazobactam/Dext 3.375 GM in Premix Bag 1 BAG IV SCH ×6 (06:21→23:00)
[2019-02-16] MEDS: Amylase/Lipase/Protease 12,000 Unit Cap.CR PO SCH ×3 (07:41→15:54)
[2019-02-16] MEDS: Pantoprazole 40 MG Tab.CR PO SCH ×2 (07:41→15:57)
[2019-02-16] MEDS: Levothyroxine 25 MCG Tab PO SCH (07:41)
[2019-02-16] MEDS: Levothyroxine 100 MCG Tab PO SCH (07:42)
[2019-02-16] MEDS: Gabapentin 300 MG Cap PO SCH ×3 (08:01→20:47)
[2019-02-16] MEDS: Venlafaxine 75 MG Tab PO SCH ×2 (08:01→20:46)
[2019-02-16] MEDS: Lactobacillus Rhamnosus GG (Probiotic) Cap PO SCH ×2 (08:01→20:46)
[2019-02-16] MEDS: DULoxetine 30 MG Cap PO SCH ×2 (08:01→20:46)
[2019-02-16] MEDS: Cyanocobalamin (Vitamin B12) 1,000 MCG Tab PO SCH (08:02)
[2019-02-16] MEDS: Enoxaparin 40 MG/0.4 ML Syringe SUBCUT SCH (08:02)
[2019-02-16] MEDS: Sodium Chloride 0.9% 10 ML Syringe FLUSH SCH (08:03)
[2019-02-16] MEDS: Sodium Chloride 0.9% 1,000 ML IV SCH (08:50)
[2019-02-16] MEDS ORDERED: Potassium Chloride 20 MEQ Tab.ER PO ONE (10:00)
--- NOTE | 2019-02-16 14:26 | PCM.PN ---
- General Info Date of Service: 02/16/19 Subjective Update: Mr. Garvey has remained stable since yesterday, vital signs have been good and he has remained afebrile. Nominal pain is back to baseline and he denies significant nausea or vomiting. White blood cell count remains elevated but has improved significantly since yesterday. Cultures remain negative. Functional Status: Reports: Pain Controlled, Tolerating Diet, Ambulating, Urinating - Review of Systems General: Reports: Weakness. Denies: Fever, Chills Pulmonary: Reports: No Symptoms Cardiovascular: Reports: No Symptoms Gastrointestinal: Reports: No Symptoms - Patient Data Vitals - Most Recent: Last Vital Signs Temp 97.7 F 02/16/19 11:40 Pulse 93 02/16/19 11:40 Resp 16 02/16/19 11:40 BP 96/52 L 02/16/19 11:40 Pulse Ox 98 02/16/19 11:40 Weight - Most Recent: 220 lb 5.985 oz I&O - Last 24 Hours: Intake & Output 02/15/19 02/16/19 02/16/19 22:59 06:59 14:59 Intake Total 1506 1247 940 Output Total 925 750 Balance 581 1247 190 Lab Results Last 24 Hours: Laboratory Results - last 24 hr 02/16/19 02/16/19 Range/Units 09:11 09:11 WBC 12.3 H (4.5-11.0) K/uL RBC 2.63 L (4.30-5.90) M/uL Hgb 8.5 L (12.0-15.0) g/dL Hct 25.6 L (40.0-54.0) % MCV 97 (80-98) fL MCH 32 H (27-31) pg MCHC 33 (32-36) % Plt Count 196 (150-400) K/uL Add Manual Diff Yes Neutrophils % (Manual) 81 H (36-66) % Band Neutrophils % 3 L (5-11) % Lymphocytes % (Manual) 11 L (24-44) % Monocytes % (Manual) 2 (2-6) % Eosinophils % (Manual) 3 (2-4) % Sodium 141 (140-148) mmol/L Potassium 3.4 L (3.6-5.2) mmol/L Chloride 109 H (100-108) mmol/L Carbon Dioxide 25 (21-32) mmol/L Anion Gap 10.4 (5.0-14.0) mmol/L BUN 12 (7-18) mg/dL Creatinine 0.6 L (0.8-1.3) mg/dL Est Cr Clr Drug Dosing 138.96 mL/min Estimated GFR (MDRD) > 60 (>60) Glucose 78 (74-106) mg/dL Calcium 8.1 L (8.5-10.1) mg/dL Magnesium 1.6 L (1.8-2.4) mg/dL Total Bilirubin 0.9 (0.2-1.0) mg/dL AST 23 (15-37) U/L ALT 21 (12-78) U/L Alkaline Phosphatase 234 H (46-116) U/L Total Protein 5.6 L (6.4-8.2) g/dL Albumin 1.8 L (3.4-5.0) g/dL Globulin 3.8 H (2.3-3.5) g/dL Albumin/Globulin Ratio 0.5 L (1.2-2.2) Omid Results Last 24 Hours: Microbiology 02/15/19 03:50 Gram Stain - Final Ascities Fluid Body Fluid Culture - Preliminary 02/14/19 00:05 Aerobic Blood Culture - Preliminary Blood - Arm, Left NO GROWTH AFTER 1 DAY Anaerobic Blood Culture - Preliminary NO GROWTH AFTER 1 DAY 02/14/19 23:55 Aerobic Blood Culture - Preliminary Blood - Port-A-Cath NO GROWTH AFTER 1 DAY Anaerobic Blood Culture - Preliminary NO GROWTH AFTER 1 DAY Med Orders - Current: Current Medications Acetaminophen (Tylenol) 650 mg PO Q4H PRN PRN Reason: Pain (Mild 1-3)/fever Last Admin: 02/16/19 04:05 Dose: 650 mg Albuterol (Proventil Neb Soln) 2.5 mg NEB Q4H PRN PRN Reason: Shortness Of Breath/wheezing Albuterol/Ipratropium (Duoneb 3.0-0.5 Mg/3 Ml) 3 ml NEB QID PRN PRN Reason: Shortness Of Breath/wheezing Lipase/Protease/Amylase (Jerel Gonzalez 12,000 Units) 1 cap PO TIDAC [facility] Last Admin: 02/16/19 11:39 Dose: 1 cap Bisacodyl (Dulcolax) 5 mg PO DAILY PRN PRN Reason: Constipation Lidocaine HCl 30 ml/ Al Hydroxide/Mg Hydroxide 30 ml/Diphenhydramine HCl 75 mg 0 ml MUCMEM QID [facility] Last Admin: 02/16/19 10:28 Dose: 5 ml Cyanocobalamin (Vitamin B12) 2,500 mcg PO DAILY [facility] Last Admin: 02/16/19 08:02 Dose: 2,500 mcg Cyclobenzaprine HCl (Flexeril) 10 mg PO TID PRN PRN Reason: Muscle Spasm Docusate Sodium (Colace) 100 mg PO BID PRN PRN Reason: Constipation Duloxetine HCl (Cymbalta) 60 mg PO BID [facility] Last Admin: 02/16/19 08:01 Dose: 60 mg Enoxaparin Sodium (Lovenox) 40 mg SUBCUT DAILY [facility] Last Admin: 02/16/19 08:02 Dose: 40 mg Gabapentin (Neurontin) 600 mg PO TID [facility] Last Admin: 02/16/19 14:19 Dose: 600 mg Vancomycin HCl 1.5 gm/ Sodium (Chloride) 250 mls @ 165 mls/hr IV Q12H [facility] Last Admin: 02/16/19 12:09 Dose: 165 mls/hr Piperacillin/Tazobactam/ (Dextrose 3.375 gm/ Premix) 50 mls @ 100 mls/hr IV Q6H [facility] Last Admin: 02/16/19 11:39 Dose: 100 mls/hr Magnesium Sulfate 2 gm/ Premix 50 mls @ 25 mls/hr IV Q6H [facility] Stop: 02/16/19 22:29 Lactobacillus Rhamnosus (Culturelle) 1 cap PO BID [facility] Last Admin: 02/16/19 08:01 Dose: 1 cap Levothyroxine Sodium (Synthroid) 100 mcg PO ACBREAKFAST [facility] Last Admin: 02/16/19 07:42 Dose: 100 mcg Levothyroxine Sodium (Levothyroxine) 25 mcg PO ACBREAKFAST [facility] Last Admin: 02/16/19 07:41 Dose: 25 mcg Loratadine (Claritin Reditabs) 10 mg PO DAILY PRN PRN Reason: Other Last Admin: 02/15/19 18:18 Dose: 10 mg Lorazepam (Ativan) 1 mg IV Q6H PRN PRN Reason: Nausea/Vomiting Magnesium Oxide (Magnesium Oxide) 400 mg PO BID [facility] Melatonin (Melatonin) 6 mg PO BEDTIME PRN PRN Reason: Insomnia Morphine Sulfate (Morphine) 2 mg IVPUSH Q2H PRN PRN Reason: Pain (severe 7-10) Last Admin: 02/16/19 07:43 Dose: 2 mg Morphine Sulfate (Ms Contin) 15 mg PO Q12H [facility] Last Admin: 02/16/19 06:19 Dose: 15 mg Ondansetron HCl (Zofran Odt) 4 mg PO Q6H PRN PRN Reason: Nausea able to take PO Oxycodone HCl (Oxycodone) 10 mg PO Q4H PRN PRN Reason: Pain (moderate 4-6) Last Admin: 02/16/19 12:09 Dose: 10 mg Pantoprazole Sodium (Protonix) 40 mg PO BIDAC [facility] Last Admin: 02/16/19 07:41 Dose: 40 mg Polyethylene Glycol (Miralax) 17 gm PO QPM [facility] Last Admin: 02/15/19 17:47 Dose: 17 gm Ropinirole HCl (Requip) 1 mg PO BEDTIME [facility] Last Admin: 02/15/19 20:03 Dose: 1 mg Sodium Chloride (Saline Flush) 10 ml FLUSH DAILY [facility] Last Admin: 02/16/19 08:03 Dose: Not Given Venlafaxine HCl (Effexor) 75 mg PO BID [facility] Last Admin: 02/16/19 08:01 Dose: 75 mg Discontinued Medications Acetaminophen (Tylenol Extra Strength) 1,000 mg PO ONETIME ONE Stop: 02/14/19 22:58 Last Admin: 02/14/19 23:20 Dose: 1,000 mg Lactated Ringer's (Ringers, Lactated) 1,000 mls @ 1,000 mls/hr IV BOLUS ONE Stop: 02/14/19 23:48 Last Admin: 02/15/19 05:04 Dose: Not Given Vancomycin HCl 1.75 gm/ Sodium (Chloride) 250 mls @ 150 mls/hr IV NOW STA Stop: 02/15/19 02:41 Last Admin: 02/15/19 01:19 Dose: 150 mls/hr Sodium Chloride (Normal Saline) 1,000 mls @ 125 mls/hr IV ONETIME ONE Stop: 02/15/19 11:10 Last Admin: 02/15/19 03:12 Dose: 125 mls/hr Sodium Chloride (Normal Saline) 1,000 mls @ 125 mls/hr IV ASDIRECTED [facility] Last Admin: 02/16/19 08:50 Dose: 125 mls/hr Sodium Chloride (Normal Saline) 86 mls @ 3.5 mls/sec IV ONETIME ONE Stop: 02/15/19 10:37 Last Admin: 02/15/19 11:17 Dose: 3.5 mls/sec Iopamidol (Isovue-300 (61%)) 150 ml IV . DIRECTED [facility] Stop: 02/15/19 12:00 Last Admin: 02/15/19 11:17 Dose: 150 ml Morphine Sulfate (Ms Contin) 15 mg PO Q12H [facility] Last Admin: 02/15/19 05:44 Dose: 15 mg Non-Formulary Medication (Levothyroxine [Levothyroxine]) 125 mcg PO ACBRK [facility] Ondansetron HCl (Zofran Odt) 4 mg PO ONETIME ONE Stop: 02/14/19 22:28 Last Admin: 02/15/19 05:03 Dose: Not Given Oxycodone HCl (Oxycodone) 10 mg PO ONETIME ONE Stop: 02/14/19 22:58 Last Admin: 02/14/19 23:21 Dose: 10 mg Pantoprazole Sodium (Protonix Iv) 40 mg IVPUSH Q12H [facility] Last Admin: 02/15/19 05:43 Dose: 40 mg Polyethylene Glycol (Miralax) 17 gm PO QPM [facility] Potassium Chloride (Klor-Con M20) 40 meq PO ONETIME ONE Stop: 02/16/19 10:01 Last Admin: 02/16/19 10:28 Dose: 40 meq Sertraline HCl (Zoloft) 100 mg PO DAILY [facility] Last Admin: 02/15/19 08:31 Dose: 100 mg Sodium Chloride (Saline Flush) 10 ml FLUSH ONETIME ONE Stop: 02/15/19 10:37 Last Admin: 02/15/19 11:17 Dose: 10 ml Tbo-Filgrastim (Granix) 480 mcg SUBCUT ONETIME ONE Stop: 02/15/19 11:31 Last Admin: 02/15/19 11:55 Dose: 480 mcg Venlafaxine HCl (Effexor) 75 mg PO DAILY [facility] Last Admin: 02/15/19 08:31 Dose: 75 mg - Exam General: Alert, Oriented, No Acute Distress Lungs: Clear to Auscultation, Normal Respiratory Effort Cardiovascular: Regular Rate, Regular Rhythm, No Murmurs GI/Abdominal Exam: Soft, Non-Tender, No Organomegaly, No Distention Extremities: Non-Tender, No Pedal Edema - Problem List Review Problem List Initiated/Reviewed/Updated: Yes - My Orders Last 24 Hours: My Active Orders 02/15/19 13:44 Dietary Supplements [RC] BIDAC 02/15/19 17:24 Loratadine [Claritin RediTabs] 10 mg PO DAILY PRN 02/16/19 14:18 Convert IV to Saline Lock [OM.PC] Routine 02/16/19 14:30 Magnesium Oxide 400 mg PO BID Magnesium Sulfate/Water [Magnesium Sulfate 2 GM in Water 50 ML] 2 gm Premix Bag 1 bag IV Q6H 02/17/19 05:00 BASIC METABOLIC PANEL,BMP [CHEM] Timed CBC WITH AUTO DIFF [HEME] Timed MAGNESIUM [CHEM] Timed - Plan Plan:: ASSESSMENT / PLAN Fever/sepsis-probable abdominal source, related to percutaneous drainage tube and underlying pancreatic carcinoma with obstruction. Less likely central line infection. Ulcers remain negative, abdominal pain back to baseline with no nausea or vomiting. White blood cell count significantly improved but remains modestly elevated -Saline lock IV -Continue IV vancomycin and Zosyn and additional 24 hours -blood cultures x2 pending, one from central line, culture from biliary drainage tube pending Pancreatic cancer- this week finished 3rd week of chemotherapy, will now have 2 weeks off, has follow up appointments next week, and repeat PET scan in a week. He has a right port-a-cath in right upper chest place 01.03.2019 at [facility] and Biliary drain in right upper abdomen placed at [facility], has appoint next Tuesday02/21/2019 to have larger drain place. -Culture from drain pending Tobacco use -declines patch Hx of Bariatric Surgery by Dr. Artur Young -continue Vitamin B12 supplement Maintenance issues -Orders home meds: on hold -Nutrition:regular diet -Alexander catheter not indicated at this time -DVT: SCD -PPI; Lovenox 40 mg subcutaneous daily -consult OT for discharge planning -consult PT for strengthening. CODE STATUS: DNR/DNI Admission status: Admit to [address] [place] [address] Admission justification. This patient will be admitted for inpatient services and is medically appropriate meeting medical necessity for inpatient admission as outlined in my documentation. I reasonably expect the patient will require inpatient services that span. Time over 2 midnights. I reasonably expect this patient to be discharged or transferred within 96 hours after admission to the critical [facility]. Disposition: home with Ce Primary care provider: Iggy Chicas NP Hospitalist: Dr. Jose
[2019-02-16] MEDS: Magnesium Oxide 400 MG Tab PO SCH ×2 (15:54→20:46)
[2019-02-16] MEDS: Magnesium Sulfate/Water 2 GM in Premix Bag 1 BAG IV SCH ×2 (15:55→20:46)
[2019-02-16] MEDS: Polyethylene Glycol 3350 Powder 17 GM Packet PO SCH (16:17)
[2019-02-16] MEDS: rOPINIRole 1 MG Tab PO SCH (20:47)
[2019-02-17] MEDS: oxyCODONE 5 MG Tab PO PRN ×2 (02:27→07:43)
[2019-02-17] MEDS: Morphine 15 MG Tab.ER PO SCH (05:33)
[2019-02-17] MEDS: Piperacillin/Tazobactam/Dext 3.375 GM in Premix Bag 1 BAG IV SCH ×2 (05:33→12:14)
[2019-02-17] MEDS: Lidocaine 2% 30 ML, Alum Hydrox/Mag Hydrox/Simeth 30 ML, diphenhydrAMINE 75 MG MUCMEM SCH ×6 (05:34→10:17)
[2019-02-17] MEDS: Pantoprazole 40 MG Tab.CR PO SCH (07:33)
[2019-02-17] MEDS: Levothyroxine 25 MCG Tab PO SCH (07:33)
[2019-02-17] MEDS: Amylase/Lipase/Protease 12,000 Unit Cap.CR PO SCH ×2 (07:33→11:28)
[2019-02-17] MEDS: Levothyroxine 100 MCG Tab PO SCH (07:34)
[2019-02-17] MEDS: Magnesium Oxide 400 MG Tab PO SCH ×2 (07:35→08:07)
[2019-02-17] MEDS: DULoxetine 30 MG Cap PO SCH ×2 (07:35→08:06)
[2019-02-17] MEDS: Lactobacillus Rhamnosus GG (Probiotic) Cap PO SCH ×2 (07:36→08:06)
[2019-02-17] MEDS: Gabapentin 300 MG Cap PO SCH ×2 (07:36→08:07)
[2019-02-17] MEDS: Enoxaparin 40 MG/0.4 ML Syringe SUBCUT SCH ×2 (07:37→08:06)
[2019-02-17] MEDS: Venlafaxine 75 MG Tab PO SCH ×2 (07:37→08:06)
[2019-02-17] MEDS: Cyanocobalamin (Vitamin B12) 1,000 MCG Tab PO SCH ×2 (07:38→08:12)
[2019-02-17] MEDS: Sodium Chloride 0.9% 10 ML Syringe FLUSH SCH (08:07)
[2019-02-17 10:31] VITALS: BP 97/57
--- NOTE | 2019-02-17 12:22 | PCM.DCSUM1 ---
Discharge Summary - Hospital Course Brief History: Mr. Garvey is a 68-year-old gentleman with known pancreatic carcinoma. He is status post placement of a percutaneous biliary drainage tube because of obstruction. He was admitted through the emergency department with fever, nausea, vomiting, and increased abdominal pain, secondary to cholangitis and infection of the drainage tube. - Discharge Data Discharge Date: 02/17/19 Discharge Disposition: Home, Self-Care 01 Condition: Fair - Discharge Diagnosis/Problem(s) (1) Cholangitis SNOMED Code(s): 25386847 ICD Code: K83.09 - OTHER CHOLANGITIS Status: Acute Current Visit: Yes (2) Pancreatic cancer SNOMED Code(s): 923697116 ICD Code: C25.9 - MALIGNANT NEOPLASM OF PANCREAS, UNSPECIFIED Status: Acute Priority: High Current Visit: Yes Qualifiers: Pancreatic malignancy location: head of pancreas Qualified Code(s): C25.0 - Malignant neoplasm of head of pancreas - Patient Summary/Data Hospital Course: Mr. Garvey is a 68 yo male with pancreatic CA presents with a fever of 24 hours duration. During that period of time also developed nausea, vomiting, and increase in abdominal pain. Was in to the clinic yesterday morning for a different issue and has not reported his current illness to his primary. Called the provider group who tx's his CA and was told to come right in to the ER and to not take any of his oral meds before arrival, he did not ask why he shouldn' t take these meds. Evaluation in the emergency department documented elevation in white blood cell count at 19,000. Chest x-ray was clear and urinalysis showed no evidence of underlying infection. On admission he was given IV fluids for hydration. Initial clinical impression was probable infection of his Pérez catheter and he was started on IV antibiotic therapy with vancomycin. After review the following morning it was felt to be more likely that the infection was related to his percutaneous biliary drainage tube. IV Zosyn was added to his antibiotic regimen. Blood cultures obtained on admission remained negative throughout his hospital stay. Culture of drainage from the percutaneous biliary tube did grow out Klebsiella pneumonia, final sensitivities are pending at the time of discharge. CT scan of the abdomen and pelvis was obtained, this did document his previously known pancreatic carcinoma and did show the percutaneous biliary drainage tube. Images were sent to the patient's interventional radiologist, Dr. Inocencio. He felt that there was a small fluid collection present, one 0.01.5 cm in size. He was not sure if this was a collection of bile versus possible infection. He did not feel like there was an indication for transfer of the patient or immediate intervention. Over the course of the next few days of hospitalization with IV antibiotics Mr. Garvey significantly improved. For 2 days prior to discharge there was no significant temperature elevation and his white blood cell count normalized. He will be discharged home on oral antibiotic therapy with Augmentin, twice daily until follow-up appointment with interventional radiology. Activity will be as tolerated and he will remain on his usual diet. In addition to the antibiotic he will be on a probiotic therapy twice daily. Follow-up appointment is already been scheduled for him with the oncology group for February 19. Appointment with interventional radiology is already set up for February 20. He will return immediately to the emergency department if he notes recurrent fever or other symptoms. - Patient Instructions Diet: Usual Diet as Tolerated Activity: As Tolerated Other/Special Instructions: Patient already has appointment scheduled with oncology for February 20, and interventional radiology for February 21 - Discharge Plan *PRESCRIPTION DRUG MONITORING PROGRAM REVIEWED*: No *COPY OF PRESCRIPTION DRUG MONITORING REPORT IN PATIENT PRAVEEN: No Prescriptions/Med Rec: Amoxicillin/Potassium Clav [Augmentin 875-125 Tablet] 1 each PO BID #8 tablet Lactobacillus Rhamnosus GG [Culturelle] 1 cap PO BID #60 cap Home Medications: Home Meds Ca Carbonate/Vitamin D3/Vit K [Calcium + D Soft Chewable Tab] 1 tab PO BID 12/03 [History] Cyanocobalamin (Vitamin B-12) [B-12] 2,500 mcg PO DAILY 12/03/14 [History] Gabapentin [Neurontin] 600 mg PO TID 12/03/14 [History] Levothyroxine 125 mcg PO ACBRK 12/03/14 [History] Multivitamin with Minerals [Multivitamins with Minerals] 1 each PO BID 12/03/14 [History] Sertraline [Zoloft] 100 mg PO DAILY 12/03/14 [History] Vitamin B Complex [B Complex] 1 tab PO DAILY 12/03/14 [History] DULoxetine HCl [Cymbalta] 60 mg PO BID 02/12/16 [History] Omeprazole 40 mg PO BID 02/12/16 [History] Cyclobenzaprine [Flexeril] 10 mg PO TID PRN 10/21/16 [History] Acetaminophen 650 mg PO Q4H PRN 05/04/18 [History] Calcium Carbonate [Calcium] 500 mg PO DAILY PRN 05/04/18 [History] EPINEPHrine [Epipen 2-Viral] 0.3 ml IM ASDIRECTED 05/04/18 [History] rOPINIRole [Requip] 1 mg PO BEDTIME 05/04/18 [History] Polyethylene Glycol 3350 17 g PO QPM 01/17/19 [History] Prochlorperazine Maleate [Compazine] 10 mg PO Q6HR PRN 01/17/19 [History] Venlafaxine [Effexor] 75 mg PO BID 01/17/19 [History] oxyCODONE 10 mg PO Q4HR PRN 01/17/19 [History] 0.9 % Sodium Chloride [Sodium Chloride] 10 ml GTUBE DAILY 02/15/19 [History] Amylase/Lipase/Protease [Jerel DR 6,000 Unit] 12,000 unit PO TID 02/15/19 [ History] Aspirin [Aspirin EC] 325 mg PO DAILY 02/15/19 [History] Diphenhyd/Lidocaine/MagAl/Rohan [First-Mouthwash BLM Susp] 5 ml SSPIT QID [History] Gemcitabine HCl 800 mg IV ASDIRECTED 02/15/19 [History] Morphine [MS Contin] 15 mg PO Q12HR 02/15/19 [History] PACLitaxel Protein-Bound [Abraxane] 298 mg IV ASDIRECTED 02/15/19 [History] atorvaSTATin [Lipitor] 10 mg PO BEDTIME 02/15/19 [History] Amoxicillin/Potassium Clav [Augmentin 875-125 Tablet] 1 each PO BID #8 tablet [Rx] Lactobacillus Rhamnosus GG [Culturelle] 1 cap PO BID #60 cap 02/17/19 [Rx] Referrals: Iggy Chicas, [employer] [Primary Care Provider] - (Keep appointment with Naye Maza on February 20 at 9AM Follow up appointment with Iggy Chicas on February 20 at 10AM Both at [facility]) - Discharge Summary/Plan Comment DC Time >30 min.: No - Patient Data Vitals - Most Recent: Last Vital Signs Temp 97.1 F 02/17/19 10:28 Pulse 84 02/17/19 10:28 Resp 16 02/17/19 10:28 BP 97/57 L 02/17/19 10:28 Pulse Ox 96 02/17/19 10:28 Weight - Most Recent: 220 lb 5.985 oz I&O - Last 24 hours: Intake & Output 02/16/19 02/17/19 02/17/19 22:59 06:59 14:59 Intake Total 1852 350 480 Output Total 500 300 Balance 1352 350 180 Lab Results - Last 24 hrs: Laboratory Results - last 24 hr 02/17/19 02/17/19 Range/Units 05:00 05:00 WBC 9.3 (4.5-11.0) K/uL RBC 2.61 L (4.30-5.90) M/uL Hgb 8.1 L (12.0-15.0) g/dL Hct 25.5 L (40.0-54.0) % MCV 98 (80-98) fL MCH 31 (27-31) pg MCHC 32 (32-36) % Plt Count 222 (150-400) K/uL Add Manual Diff Yes Neutrophils % (Manual) 75 H (36-66) % Band Neutrophils % 3 L (5-11) % Lymphocytes % (Manual) 15 L (24-44) % Monocytes % (Manual) 4 (2-6) % Eosinophils % (Manual) 2 (2-4) % Sodium 141 (140-148) mmol/L Potassium 3.6 (3.6-5.2) mmol/L Chloride 109 H (100-108) mmol/L Carbon Dioxide 26 (21-32) mmol/L Anion Gap 9.6 (5.0-14.0) mmol/L BUN 11 (7-18) mg/dL Creatinine 0.6 L (0.8-1.3) mg/dL Est Cr Clr Drug Dosing 138.96 mL/min Estimated GFR (MDRD) > 60 (>60) Glucose 115 H (74-106) mg/dL Calcium 7.9 L (8.5-10.1) mg/dL Magnesium 2.1 (1.8-2.4) mg/dL FELIPA Results - Last 24 hrs: Microbiology 02/15/19 03:50 Gram Stain - Final Ascities Fluid Body Fluid Culture - Preliminary 02/14/19 23:55 Aerobic Blood Culture - Preliminary Blood - Port-A-Cath NO GROWTH AFTER 2 DAYS Anaerobic Blood Culture - Preliminary NO GROWTH AFTER 2 DAYS 02/14/19 00:05 Aerobic Blood Culture - Preliminary Blood - Arm, Left NO GROWTH AFTER 2 DAYS Anaerobic Blood Culture - Preliminary NO GROWTH AFTER 2 DAYS Med Orders - Current: Current Medications Acetaminophen (Tylenol) 650 mg PO Q4H PRN PRN Reason: Pain (Mild 1-3)/fever Last Admin: 02/16/19 04:05 Dose: 650 mg Albuterol (Proventil Neb Soln) 2.5 mg NEB Q4H PRN PRN Reason: Shortness Of Breath/wheezing Albuterol/Ipratropium (Duoneb 3.0-0.5 Mg/3 Ml) 3 ml NEB QID PRN PRN Reason: Shortness Of Breath/wheezing Lipase/Protease/Amylase (Creon Dr 12,000 Units) 1 cap PO TIDAC [facility] Last Admin: 02/17/19 11:28 Dose: 1 cap Bisacodyl (Dulcolax) 5 mg PO DAILY PRN PRN Reason: Constipation Lidocaine HCl 30 ml/ Al Hydroxide/Mg Hydroxide 30 ml/Diphenhydramine HCl 75 mg 0 ml MUCMEM QID [facility] Last Admin: 02/17/19 10:17 Dose: 5 ml Cyanocobalamin (Vitamin B12) 2,500 mcg PO DAILY [facility] Last Admin: 02/17/19 08:12 Dose: Not Given Cyclobenzaprine HCl (Flexeril) 10 mg PO TID PRN PRN Reason: Muscle Spasm Docusate Sodium (Colace) 100 mg PO BID PRN PRN Reason: Constipation Duloxetine HCl (Cymbalta) 60 mg PO BID [facility] Last Admin: 02/17/19 08:06 Dose: Not Given Enoxaparin Sodium (Lovenox) 40 mg SUBCUT DAILY [facility] Last Admin: 02/17/19 08:06 Dose: Not Given Gabapentin (Neurontin) 600 mg PO TID [facility] Last Admin: 02/17/19 08:07 Dose: Not Given Heparin Sodium (Porcine) (Heparin Lock Flush 100 Units/Ml) 500 units FLUSH ASDIRECTED PRN PRN Reason: IV Use Last Admin: 02/17/19 11:29 Dose: 500 units Vancomycin HCl 1.5 gm/ Sodium (Chloride) 250 mls @ 165 mls/hr IV Q12H [facility] Last Admin: 02/16/19 23:00 Dose: 165 mls/hr Piperacillin/Tazobactam/ (Dextrose 3.375 gm/ Premix) 50 mls @ 100 mls/hr IV Q6H [facility] Last Admin: 02/17/19 05:33 Dose: 100 mls/hr Lactobacillus Rhamnosus (Culturelle) 1 cap PO BID [facility] Last Admin: 02/17/19 08:06 Dose: Not Given Levothyroxine Sodium (Synthroid) 100 mcg PO ACBREAKFAST [facility] Last Admin: 02/17/19 07:34 Dose: 100 mcg Levothyroxine Sodium (Levothyroxine) 25 mcg PO ACBREAKFAST [facility] Last Admin: 02/17/19 07:33 Dose: 25 mcg Loratadine (Claritin Reditabs) 10 mg PO DAILY PRN PRN Reason: Other Last Admin: 02/15/19 18:18 Dose: 10 mg Lorazepam (Ativan) 1 mg IV Q6H PRN PRN Reason: Nausea/Vomiting Magnesium Oxide (Magnesium Oxide) 400 mg PO BID [facility] Last Admin: 02/17/19 08:07 Dose: Not Given Melatonin (Melatonin) 6 mg PO BEDTIME PRN PRN Reason: Insomnia Morphine Sulfate (Morphine) 2 mg IVPUSH Q2H PRN PRN Reason: Pain (severe 7-10) Last Admin: 02/16/19 07:43 Dose: 2 mg Morphine Sulfate (Ms Contin) 15 mg PO Q12H [facility] Last Admin: 02/17/19 05:33 Dose: 15 mg Ondansetron HCl (Zofran Odt) 4 mg PO Q6H PRN PRN Reason: Nausea able to take PO Oxycodone HCl (Oxycodone) 10 mg PO Q4H PRN PRN Reason: Pain (moderate 4-6) Last Admin: 02/17/19 07:43 Dose: 10 mg Pantoprazole Sodium (Protonix) 40 mg PO BIDAC [facility] Last Admin: 02/17/19 07:33 Dose: 40 mg Polyethylene Glycol (Miralax) 17 gm PO QPM [facility] Last Admin: 02/16/19 16:17 Dose: 17 gm Ropinirole HCl (Requip) 1 mg PO BEDTIME [facility] Last Admin: 02/16/19 20:47 Dose: 1 mg Sodium Chloride (Saline Flush) 10 ml FLUSH DAILY [facility] Last Admin: 02/17/19 08:07 Dose: Not Given Venlafaxine HCl (Effexor) 75 mg PO BID [facility] Last Admin: 02/17/19 08:06 Dose: Not Given Discontinued Medications Acetaminophen (Tylenol Extra Strength) 1,000 mg PO ONETIME ONE Stop: 02/14/19 22:58 Last Admin: 02/14/19 23:20 Dose: 1,000 mg Lactated Ringer's (Ringers, Lactated) 1,000 mls @ 1,000 mls/hr IV BOLUS ONE Stop: 02/14/19 23:48 Last Admin: 02/15/19 05:04 Dose: Not Given Vancomycin HCl 1.75 gm/ Sodium (Chloride) 250 mls @ 150 mls/hr IV NOW STA Stop: 02/15/19 02:41 Last Admin: 02/15/19 01:19 Dose: 150 mls/hr Sodium Chloride (Normal Saline) 1,000 mls @ 125 mls/hr IV ONETIME ONE Stop: 02/15/19 11:10 Last Admin: 02/15/19 03:12 Dose: 125 mls/hr Sodium Chloride (Normal Saline) 1,000 mls @ 125 mls/hr IV ASDIRECTED [facility] Last Admin: 02/16/19 08:50 Dose: 125 mls/hr Sodium Chloride (Normal Saline) 86 mls @ 3.5 mls/sec IV ONETIME ONE Stop: 02/15/19 10:37 Last Admin: 02/15/19 11:17 Dose: 3.5 mls/sec Magnesium Sulfate 2 gm/ Premix 50 mls @ 25 mls/hr IV Q6H [facility] Stop: 02/16/19 22:59 Last Admin: 02/16/19 20:46 Dose: 25 mls/hr Iopamidol (Isovue-300 (61%)) 150 ml IV . DIRECTED [facility] Stop: 02/15/19 12:00 Last Admin: 02/15/19 11:17 Dose: 150 ml Morphine Sulfate (Ms Contin) 15 mg PO Q12H [facility] Last Admin: 02/15/19 05:44 Dose: 15 mg Non-Formulary Medication (Levothyroxine [Levothyroxine]) 125 mcg PO ACBRK [facility] Ondansetron HCl (Zofran Odt) 4 mg PO ONETIME ONE Stop: 02/14/19 22:28 Last Admin: 02/15/19 05:03 Dose: Not Given Oxycodone HCl (Oxycodone) 10 mg PO ONETIME ONE Stop: 02/14/19 22:58 Last Admin: 02/14/19 23:21 Dose: 10 mg Pantoprazole Sodium (Protonix Iv) 40 mg IVPUSH Q12H [facility] Last Admin: 02/15/19 05:43 Dose: 40 mg Polyethylene Glycol (Miralax) 17 gm PO QPM [facility] Potassium Chloride (Klor-Con M20) 40 meq PO ONETIME ONE Stop: 02/16/19 10:01 Last Admin: 02/16/19 10:28 Dose: 40 meq Sertraline HCl (Zoloft) 100 mg PO DAILY [facility] Last Admin: 02/15/19 08:31 Dose: 100 mg Sodium Chloride (Saline Flush) 10 ml FLUSH ONETIME ONE Stop: 02/15/19 10:37 Last Admin: 02/15/19 11:17 Dose: 10 ml Tbo-Filgrastim (Granix) 480 mcg SUBCUT ONETIME ONE Stop: 02/15/19 11:31 Last Admin: 02/15/19 11:55 Dose: 480 mcg Venlafaxine HCl (Effexor) 75 mg PO DAILY [facility] Last Admin: 02/15/19 08:31 Dose: 75 mg - Exam General: Reports: Alert, Oriented, Cooperative, No Acute Distress Lungs: Reports: Clear to Auscultation, Normal Respiratory Effort Cardiovascular: Reports: Regular Rate, Regular Rhythm, No Murmurs GI/Abdominal Exam: Soft, No Organomegaly, Tender. No: Guarding, Rigid, Rebound Extremities: Non-Tender, No Pedal Edema
== END 2019-02-17 12:40 | disposition home or self-care (01) | DRG 445 ==
LOC: JP.ED 22:22 → JP.MS 02-15 02:59
PROVIDERS: ADMIT Hospitalist; ATTEND Hospitalist
DX: R50.9 Fever, unspecified (principal); R11.0 Nausea; K83.09 Other cholangitis; C25.0 Malignant neoplasm of head of pancreas; Z66 Do not resuscitate; E03.9 Hypothyroidism, unspecified; F17.210 Nicotine dependence, cigarettes, uncomplicated; Z86.73 Personal history of transient ischemic attack (TIA), and cerebral infarction without residual deficits; E78.00 Pure hypercholesterolemia, unspecified; G47.30 Sleep apnea, unspecified; K21.9 Gastro-esophageal reflux disease without esophagitis; F41.9 Anxiety disorder, unspecified; E53.8 Deficiency of other specified B group vitamins; Z98.84 Bariatric surgery status; Z92.21 Personal history of antineoplastic chemotherapy; N42.9 Disorder of prostate, unspecified; Z98.1 Arthrodesis status; Z86.14 Personal history of Methicillin resistant Staphylococcus aureus infection; M54.2 Cervicalgia; M54.9 Dorsalgia, unspecified; G89.29 Other chronic pain; M19.90 Unspecified osteoarthritis, unspecified site; H54.7 Unspecified visual loss; Z79.82 Long term (current) use of aspirin; Z88.2 Allergy status to sulfonamides; Z91.09 Other allergy status, other than to drugs and biological substances
CPT/HCPCS: 36415 ×2; 71046; 80053; 81001; 82150; 83605; 83690; 83735; 85025; 85610; 86140; 87040 ×2; 87804 ×2; 96365; 99285; A9270 ×2; J3370; J7050; 74177; 80048; 85027; 87070; 87077; 87186; 87205; 96361; C9113; J1447; J1642; J1650; J2270; J2543; J3475; J7030